=== PATIENT | female | born 1980 | race Caucasian/White ===

== ENCOUNTER 2019-05-05 21:24 | Emergency (ER) | payer OTHER, SELFPAY ==
--- NOTE | ~2019-05-05 | CT_ITS ---
EXAMINATION: CTA brain carotid DATE: 05/05/2019 22:45 INDICATION: Headache and dizziness. TECHNIQUE: Computed tomographic angiography (CTA) of the head was performed without and with 100 mL O mnipaque-350 intravenous contrast. CTA of the neck was performed with intravenous contrast. Automated exposure control and iterative reconstruction technique were employed. The dose-length product was 1 610.53 mGy-cm. Maximum intensity projection and volume rendered 3D-reconstructions were created by cortez diana technologist on a separate workstation. COMPARISON: None. FINDINGS: HEAD CTA: There is no intracranial hemorrhage, acute infarction, or abnormal intracranial mass lesion . The ventricles are normal in size. There is mild mucosal thickening in the paranasal sinuses. The o rbits are normal. The mastoid air cells are normal. The vertebral arteries are codominant. There is n o significant stenosis of basilar artery or the posterior cerebral arteries. There is no significant stenosis of the intracranial internal carotid arteries or anterior or middle cerebral arteries. Anter ior communicating artery is normal. The posterior communicating arteries are normal. There is no aneu rysm. NECK CTA: There are no pathologically enlarged lymph nodes. There is no significant stenosis of the v ertebral arteries. There is no visible plaque in the proximal internal carotid arteries. There is 0% stenosis of the proximal right internal carotid artery relative to normal distal artery lumen diamete r (NASCET criteria). There is 0% stenosis of the proximal left internal carotid artery relative to no rmal distal artery lumen diameter. There is mild cervical spondylosis. IMPRESSION: 1. Normal brain. No aneurysm or significant intracranial arterial stenosis. 2. Normal neck arteries. Reviewed, dictated and finalized at location A. IC RELATIONS ASSISTANT
[2019-05-05 21:27] VITALS: BP 160/112; PULSE 95; RESP 16; TEMP 36.5; O2SAT 100
--- NOTE | 2019-05-05 21:45 | ED.URI ---
HPI - URI/Sore Throat General Chief Complaint: Upper Respiratory Infection Stated Complaint: headache Time Seen by Provider: 05/05/19 21:44 Source: patient Mode of arrival: ambulatory Limitations: no limitations History of Present Illness HPI Narrative: The pt is a 38 y/o female who presents to the ED with c/o a RODRIGUEZ that began 2 hours ago. Her RODRIGUEZ began while sitting on the couch. She states that it started as a small RODRIGUEZ and has now worsened and moved to the entire lt side of her head. She describes it as a heavy pain behind her lt eye with and notes a tender spot on her lt forehead. The pt reports blurry vision in her lt eye, fever, rt ear otalgia, neck stiffness, and dizziness upon standing, but denies cough, rash, numbness, congestion, myalgia, vomiting, or ABD pain. She notes that her rt ear has been bothering her for about 2 months and that she has already sen Dr. Taylor about it twice. She does not have a PMHx of migraines but frequently gets shingles. She notes that she gets shingles about twice a year but she has never had these types of sx associated with it. 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 She does not smoke and is able to read her phone despite the RODRIGUEZ. elicited complaint: other (RODRIGUEZ) Onset (ago): hour(s) (2) Consistency: progressively worsening Associated symptoms: fever, ear pain (rt) and other (dizziness upon standing, blurry vision in lt eye, neck stiffness) Related Data Allergies Allergy/AdvReac Type Severity Reaction Status Date / Time morphine Allergy Unknown Verified 12/10/18 20:15 Review of Systems Review of Systems: Narrative: CONSTITUTIONAL: Reports fever and dizziness upon standing. EYES: Reports blurry vision in lt eye. ENT: Reports rt ear otalgia. Denies congestion. RESPIRATORY: Denies cough. GASTROINTESTINAL: Denies abdominal pain or vomiting. SKIN: Denies rash. MUSCULOSKELETAL: Reports neck stiffness. Denies myalgia. NEUROLOGIC: Reports headache. Denies numbness. All systems reviewed & are unremarkable except as noted in HPI and below [facility] Past Medical History Medical History (Updated 05/05/19 @ 23:39 by Michelle Ricketts MD) History of reproductive disorder uterine ablation Shingles TIA (transient ischemic attack) Surgical History Surgical History (Updated 05/05/19 @ 22:02 by Patience Alvarez) H/O tubal ligation History of orthopedic surgery rt shoulder Hx of section Hx of gastric bypass sleeve Hx of tonsillectomy Social History Social History (Updated 05/05/19 @ 22:02 by Patience Alvarez) Smoking status: Never smoker Exam Narrative: Exam Narrative: GENERAL: Well-appearing, well-nourished, and in no acute distress. HEAD: Normocephalic, atraumatic. EYES: 2+ PERRLA and EOMI no nystagmus. ENT: Nares clear, no rhinorrhea or epistaxis. Mucous membranes moist. NECK: Supple. CHEST: Clear to auscultation. No respiratory distress. HEART: Regular rate and rhythm. No murmur heard. Normal peripheral pulses. ABDOMEN: Soft, nontender, nondistended, normal active bowel sounds. EXTREMITIES: Normal range of motion. No edema. SKIN: Warm, dry, no rash. NEURO: No focal deficits. Alert and oriented X3. EOMs intact without nystagmus. No facial droop/asymmetry noted bilaterally. Grimace intact. Intact sensation in face. Hearing intact bilaterally. Shoulder shrug intact. Strength 5/5 bilateral upper extremities. Strength 5/5 bilateral lower extremities. Reflexes 2+ patellar. Ambulatory with a narrow base, steady gait. Course Course Emergency Course: Patient presented for evaluation of headache pain as well as tingling over her left forehead and eye. Patient does not have eye pain. No visual changes. Patient does report some dizziness that is only with movement and no dizziness currently. Patient is neurologically intact with a normal neurologic exam. IV access obtained and labs are drawn. Laboratory results show no leukocytosis
[2019-05-05] MEDS: SODIUM CHLORIDE 0.9% IV 1,000 ML 999 ML IV CONT (22:03)
[2019-05-05] MEDS: METOCLOPRAMIDE HCL INJ 10 MG/2 ML VIAL IV PUSH (22:04)
[2019-05-05 22:07] LABS: Basophils Percent Auto 0.4 % (0.2-1.2); Eosinophils Absolute Auto 0.2 K/mm3 (0-0.3); Hematocrit 41.4 % (37.0-47.0); Hemoglobin 13.3 g/dL (12.0-15.0); Immature Granulocyte Absolute 0.02 K/mm3 (0.00-0.031); Immature Granulocyte Percent A 0.3 % (0-0.5); Lymphocytes Absolute Auto 2.57 K/mm3 (0.9-3.2); Lymphocytes Percent Auto 36.6 % (18.3-44.2); Mean Corpuscular HGB Conc 32.1 g/dl (32-36); Mean Corpuscular Hemoglobin 26.5 pg (26-34); Mean Corpuscular Volume 82.6 fl (80-100); Mean Platelet Volume 9.8 fl (7.4-10.4); Monocytes Absolute Auto 0.5 K/mm3 (0.1-0.6); Monocytes Percent Auto 6.7 % (2.6-8.5); Neutrophils Absolute Auto 3.7 K/mm3 (1.3-6.7); Platelet Count Result 184 k/mm3 (150-375); Red Blood Count 5.01 M/mm3 (4.2-5.4); Red Cell Distribution Width 13.3 % (11.5-14.5)
[2019-05-05 22:17] LABS: INR 0.9; Prothrombin Time 11.5 Seconds (11.1-14.7)
[2019-05-05 22:18] LABS: Partial Thromboplastin Time 28.1 SECONDS (22.3-36.8)
[2019-05-05] MEDS: ACYCLOVIR SODIUM IVPB 800 MG in DEXTROSE 5% IN WATER 250 ML 266 MG IVPB (22:18)
[2019-05-05 22:19] LABS: Blood Urea Nitrogen 18 mg/dL (7-17); Calcium 8.7 mg/dL (8.4-10.2); Carbon Dioxide 25 mmol/L (22-30); Chloride 102 mmol/L (98-107); Estimated CRCL calculation 94 ml/min; Estimated Glomerular Filt Rate > 60; Glucose 99 mg/dL (65-105); Potassium 3.9 mmol/L (3.4-5.0); Sodium 136 mmol/L (137-145)
[2019-05-05 22:33] LABS: Erythrocyte Sedimentation Rate 12 mm/hr (0-20)
[2019-05-05 23:58] VITALS: BP 132/77; PULSE 88; RESP 18; O2SAT 99
--- NOTE | 2019-06-03 06:10 | PC.NURSE ---
LATE ENTRY This note is being entered to document information to the patient's record. The following information was omitted on [05/05/19], by [Norman Vivar]. 1L IV fluids infused at 2300. Antibiotic infused at 2314.
== END 2019-05-06 | disposition home or self-care (01) ==
PROVIDERS: Emergency Provider Emergency Medicine; PCP Emergency Medicine
DX: G43.009 Migraine without aura, not intractable, without status migrainosus (principal); Z86.73 Personal history of transient ischemic attack (TIA), and cerebral infarction without residual deficits; Z98.84 Bariatric surgery status
CPT/HCPCS: 36415; 70496; 70498; 80048; 85025; 85610; 85652; 85730; 96361; 96365; 96375; 99284; J0133; J1100; J1200; J2765; J7030; J7060; Q9967

== ENCOUNTER → 2019-09-26 10:27 | Outpatient (CLI) | payer OTHER, SELFPAY ==
--- NOTE | ~2019-09-26 | XR_ITS ---
EXAMINATION: XR foot LT min 3V DATE: 09/26/2019 11:02 INDICATION: Polyarthralgia. TECHNIQUE: 4 views of left foot were obtained. COMPARISON: Left foot radiographs 01/26/2019 FINDINGS: Bone alignment is normal. No acute fracture. There is an old healed fracture of first proxi mal phalanx with less than 1 mm step-off at the distal articular surface. Joint spaces are normal. Th ere is an enthesophyte at plantar aspect of calcaneal tuberosity. IMPRESSION: 1. No arthritis. Reviewed, dictated and finalized at location A. IMPRESSION: 1. No arthritis.
--- NOTE | ~2019-09-26 | XR_ITS ---
EXAMINATION: XR sacroiliac joints min 3V DATE: 09/26/2019 11:03 INDICATION: Polyarthralgia. TECHNIQUE: 3 views of the sacroiliac joints were obtained. COMPARISON: None. FINDINGS: Bone alignment is normal. No fracture. There is mild osteoarthritis of the hips. The sacroi liac joints are normal. IMPRESSION: 1. Normal sacroiliac joints. Reviewed, dictated and finalized at location A.
--- NOTE | ~2019-09-26 | XR_ITS ---
EXAMINATION: XR foot RT min 3V DATE: 09/26/2019 11:02 INDICATION: Polyarthralgia. TECHNIQUE: 4 views of right foot were obtained. COMPARISON: None. FINDINGS: Bone alignment is normal. No fracture. Joint spaces are well maintained. There is an enthes ophyte at plantar aspect of calcaneal tuberosity. IMPRESSION: 1. No arthritis. Reviewed, dictated and finalized at location A. IMPRESSION: 1. No arthritis.
--- NOTE | ~2019-09-26 | XR_ITS ---
XR hand RT min 3V, XR hand LT min 3V 09/26/2019 11:02 (accession [id number]), 09/26/2019 11:01 (accession [id number]) Indication: Polyarthralgias. Generalized joint pain. Procedure: 3 views of each hand Comparison: No prior studies for comparison. Findings: No fracture, subluxation or dislocation. No significant soft tissue abnormality. No foreign bodies. No erosive changes. No significant joint space narrowing. Impression: 1: No significant bone or joint abnormality. Reviewed, dictated and finalized at location A. Impression: 1: No significant bone or joint abnormality. Impression: 1: No significant bone or joint abnormality.
== END ==
DX: M19.90 Unspecified osteoarthritis, unspecified site (principal)
CPT/HCPCS: 72202; 73130; 73630

== ENCOUNTER 2021-08-02 12:54 | Emergency (ER) | payer OTHER, SELFPAY ==
[2021-08-02 12:58] VITALS: BP 142/91; PULSE 92; RESP 16; TEMP 36.6; O2SAT 100
--- NOTE | 2021-08-02 13:08 | ED.URI ---
HPI - URI/Sore Throat General Chief Complaint: Upper Respiratory Infection Stated Complaint: Sore throat Time Seen by Provider: 08/02/21 13:00 Source: patient and RN notes reviewed History of Present Illness HPI Narrative: Patient is a 41-year-old female presents the urgent care with complaints of a sore throat and left ear pain radiating to the left jaw. Patient states that she has a strong history of shingles and this feels like shingles nerve pain . Patient has lupus and a lot of autoimmune disorders and reports a history of shingles approximately 3 times per year. Patient states that the Valtrex does not tend to work however she is willing to try anything at this time . Patient states that she does have chronic intermittent fevers which she had a couple days ago. Patient has used lidocaine spray without much relief. No other acute complaints. No acute distress noted. Patient aware the plan of care. Some parts of this dictation were generated by voice recognition software and may contain typographical and/or grammatical inaccuracies. Related Data Home Medications Medication Instructions Recorded Confirmed pregabalin 75 mg PO BID 08/02/21 08/02/21 zolpidem 10 mg PO HS PRN 08/02/21 08/02/21 Allergies Allergy/AdvReac Type Severity Reaction Status Date / Time morphine Allergy Unknown Unknown Verified 08/02/21 13:16 Review of Systems Review of Systems: CONSTITUTIONAL: Denies fever, chills, or sweats. EYES: Denies visual changes, redness, or discharge. ENT: Reports of sore throat, left otalgia CARDIOVASCULAR: Denies chest pain, palpitations, or edema. RESPIRATORY: Denies cough or dyspnea. GASTROINTESTINAL: Denies abdominal pain, nausea, vomiting, or diarrhea. GENITOURINARY: Denies dysuria or hematuria. SKIN: Denies rash or itching. MUSCULOSKELETAL: Denies back pain, joint pain, or myalgia. NEUROLOGIC: Denies headache, numbness, or weakness. All other systems reviewed are negative, except as documented in HPI. [facility] Past Medical History Medical History (Updated 08/02/21 @ 13:33 by MAKEDA Ocampo) History of reproductive disorder uterine ablation Shingles TIA (transient ischemic attack) Surgical History Surgical History (Updated 05/05/19 @ 22:02 by Patience Alvarez) H/O tubal ligation History of orthopedic surgery rt shoulder Hx of section Hx of gastric bypass sleeve Hx of tonsillectomy Social History Social History (Updated 05/05/19 @ 22:02 by Patience Alvarez) Smoking status: Never smoker Comments At the time of my signature, I reviewed and agree with the nursing past medical, surgical, social, and family history. There is no relevant family history pertinent to the patient complaint. Exam Narrative: GENERAL: This is a well-nourished, well-developed patient, in no apparent distress. HEAD: normocephalic, atraumatic. EYES: PERRL. Sclera clear/white. Vision is grossly intact. EARS: External ears normal, auditory canals clear and without drainage, TMs normal without perforation. Hearing grossly intact. NOSE: External nose normal with no obvious nasal discharge, nares without redness, no rhinorrhea. THROAT: Mucous membranes moist. Moderate erythema noted to the left posterior oropharynx with 1 pinpoint vesicular lesion to the left NECK: Neck supple, non-tender without lymphadenopathy CARDIOVASCULAR: Regular rate and rhythm without murmurs, gallops, or rubs. RESPIRATORY: Clear to auscultation. Breath sounds equal bilaterally. No wheezes, rales, or rhonchi. SKIN: warm, intact with no suspicious lesions or rash, good texture and turgor. NEURO: awake, alert, and oriented to person, place and time. There were no obvious focal neurologic abnormalities. EXTREMITIES: No clubbing, cyanosis, or edema. Course Course Level of Care: Express Care Visit Vital Signs Vital signs: Vital Signs Temperature 98 F 08/02/21 12:58 Pulse Rate 92 08/02/21 12:58 Respiratory Rate
== END 2021-08-02 13:35 | disposition home or self-care (01) ==
PROVIDERS: Emergency Provider Nurse Practitioner Family; PCP Emergency Medicine
DX: J02.9 Acute pharyngitis, unspecified (principal); Z86.73 Personal history of transient ischemic attack (TIA), and cerebral infarction without residual deficits; Z98.84 Bariatric surgery status
CPT/HCPCS: 87081; 87880; 99213; G0463

== ENCOUNTER 2021-12-22 09:15 | Outpatient (CLI) | payer OTHER, SELFPAY ==
[2021-12-22 09:44] LABS: Basophils Percent Auto 0.5 % (0.2-1.2); Eosinophils Absolute Auto 0.3 K/mm3 (0-0.3); Eosinophils Percent Auto 4.7 % (0-4.4); Hemoglobin 13.1 g/dL (12.0-15.0); Immature Granulocyte Absolute 0.02 K/mm3 (0.00-0.031); Immature Granulocyte Percent A 0.4 % (0-0.5); Lymphocytes Absolute Auto 1.57 K/mm3 (0.9-3.2); Lymphocytes Percent Auto 28.4 % (18.3-44.2); Mean Corpuscular HGB Conc 32.8 g/dl (32-36); Mean Corpuscular Hemoglobin 26.7 pg (26-34); Mean Corpuscular Volume 81.6 fl (80-100); Mean Platelet Volume 9.4 fl (7.4-10.4); Monocytes Absolute Auto 0.3 K/mm3 (0.1-0.6); Monocytes Percent Auto 6.1 % (2.6-8.5); Neutrophils Absolute Auto 3.3 K/mm3 (1.3-6.7); Neutrophils Percent Auto 59.9 % (45.5-73.1); Platelet Count Result 209 k/mm3 (150-375); Red Cell Distribution Width 13.3 % (11.5-14.5); White Blood Count 5.5 K/mm3 (4.5-10.0)
== END 2021-12-22 09:16 | disposition home or self-care (01) ==
LOC: ANHSURGERY 09:21
PROVIDERS: PCP Emergency Medicine; Visit Provider Obstetrics & Gynecology
DX: Z87.898 Personal history of other specified conditions (principal); Z01.818 Encounter for other preprocedural examination
CPT/HCPCS: 36415; 85025; 86850; 86900; 86901

== ENCOUNTER 2021-12-23 02:20 | Day surgery (SDC) | payer OTHER, SELFPAY ==
[2021-12-21 09:39] VITALS: BMI 33.7
--- NOTE | 2021-12-21 09:52 | PC.NURSE ---
Report to the Outpatient Waiting Room, entrance under the green pavilion located off [facility], at time ___10:00AM____ on date __1-49-54 . OR Time: __12:00PM . - You and your visitor will be asked to self-screen and do not enter if you have any COVID symptoms. - Only one visitor and NO children visitors are allowed at this time. - The patient visitor is requested to leave or wait in car when not with patient due to restrictions. - A mask is required within the hospital. Patients may have clear liquids (water, carbonated beverages, clear teas, apple juice) until 3 hours prior to surgery with a maximum of 20 ounces. - No food from midnight until time of surgery - NO CLEAR LIQUIDS AFTER 09:00AM TUESDAY MORNING Take the following medications with a SIP of water the morning of surgery: N/A Medications to discontinue per physician N/A Date to take last dose____N/A Please no make-up, nail emirati, hairspray, perfume, deodorant, or body powder the day of surgery. No jewelry (including any body piercings) or valuables the day of surgery, leave them at home. Please take a shower or bath the night before, or the morning of, surgery with an antibacterial soap. Wear comfortable, loose fitting clothing. - Jewelry must be removed prior to entering the operating room. Rings and piercings that are not removed may be cut off. - The hospital will not accept responsibility for valuables. - Please leave all valuables, including medications, at home the day of surgery. If you are going home after surgery, a licensed special events driver must drive you home. - NO public transportation without another adult. - We recommend that an adult stay with you for 24 hours following discharge. - We also recommend that you do not drive, make important decision, drink alcoholic beverages, or take any drugs that were not prescribed by your health care provider for at least 24 hours after your discharge time. Follow any additional instructions given to you from your surgeon. If you or anyone in your household have experienced Covid symptoms in the past week, please notify your surgeon or the nurse liaison at the phone number below for possible testing. Telephone instructions given to ____PATIENT and asked if any additional questions and then verbalized understanding. Patient advised to call surgeon office or pre surgery nurse liaison [phone] if any additional questions.
--- NOTE | 2021-12-21 17:58 | PM.IMHP ---
H&P: HPI History of Present Illness Date/Time: 12/21/21 17:58 Chief Complaint: Uterine prolapse/pelvic pain/bleeding with a failed ablation Narrative: This 41 female status post ablation who continues to have bleeding has prolapse and pain says she is admitted for robotic total vaginal hysterectomy bilateral salpingectomy. Risks and benefits reviewed including but not exclusive of , aspiration bleeding transfusion, perforation injury to bowel, bladder, ureters, or other internal organs with need for open laparotomy. She received the ACOG handout entitled hysterectomy as well as Darlene handout. She had all questions answered and asked to proceed PMFSH Past Medical History Medical History History of reproductive disorder uterine ablation Shingles TIA (transient ischemic attack) Surgical History Surgical History H/O tubal ligation History of orthopedic surgery rt shoulder Hx of section Hx of gastric bypass sleeve Hx of tonsillectomy Social History Social History Smoking status: Never smoker Second hand tobacco smoke exposure: Yes (PARENTS SMOKED) Alcohol intake: never Substance use: never Substance use type: does not use Spiritual care concerns: No Meds Home Medications and Allergies Home Medications Medication Instructions Recorded Confirmed Type zolpidem 10 mg tablet 10 mg PO HS PRN sleeplessness 08/02/21 12/21/21 History Allergies Allergy/AdvReac Type Severity Reaction Status Date / Time latex Allergy Severe Rash Verified 12/21/21 09:37 morphine Allergy Severe Hives Verified 12/21/21 09:37 Exam Const: General: cooperative, healthy appearing and comfortable Nutritional Appearance: average body habitus Orientation/consciousness: oriented to person, oriented to place and oriented to time Chest: Chest palpation & inspection: normal inspection of the chest Resp: Effort & Inspection: normal respiratory effort Cardio: Rate: regular rate Rhythm: regular rhythm Heart sounds: S1 normal heart sound present and S2 normal heart sound present GI: Inspection: normal to inspection : External Female Exam: normal external appearance Speculum Exam - Vagina: normal appearance of the vagina Speculum Exam - Cervix: normal appearance of the cervix Bimanual exam- vagina & uterus: enlarged and Uterus displaced (Second-degree prolapse noted) Assessment and Plan Assessment and plan (1) Pelvic pain: Code(s): R10.2 - Pelvic and perineal pain Status: Acute (2) Vaginal bleeding: Code(s): N93.9 - Abnormal uterine and vaginal bleeding, unspecified Status: Acute (3) Uterine prolapse: Code(s): N81.4 - Uterovaginal prolapse, unspecified Status: Acute Plan Robotic total vaginal hysterectomy and bilateral salpingectomy
--- NOTE | 2021-12-22 12:13 | WPDANESEPPF ---
Anes - Initial Pre Proc Eval Procedure: Operation Date: 12/23/21 12:00 Proposed Procedures p Robotic Assisted Total Vaginal Hysterectomy with Bilateral Salpingectomy - Gary Dsouza MD Date/Time: 12/22/21 12:13 Surgeon: Gary Dsouza MD Pre Op Diagnosis: uterine prolapse, pelvic pain, excessive bleeding Patient Data Age: 41 Gender: F Height: 1.68 m Weight: 95 kg Allergies Allergy/AdvReac Type Severity Reaction Status Date / Time latex Allergy Severe Rash Verified 12/23/21 10:26 morphine Allergy Severe Hives Verified 12/23/21 10:26 Home Medications Medication Instructions Recorded Confirmed Type zolpidem 10 mg tablet 10 mg PO HS PRN sleeplessness 08/02/21 12/23/21 History Patient hx anesthesia problems: none Family hx anesthesia problems: none Results Review: All pre-operative results and documents have been reviewed as part of the pre-operative evaluation. [facility] Past Medical History Medical History (Updated 12/22/21 @ 12:14 by Ab Moy MD) History of reproductive disorder uterine ablation Lupus (systemic lupus erythematosus) Shingles TIA (transient ischemic attack) Surgical History Surgical History H/O tubal ligation History of orthopedic surgery rt shoulder Hx of section Hx of gastric bypass sleeve Hx of tonsillectomy Social History Social History Smoking status: Never smoker Second hand tobacco smoke exposure: Yes (PARENTS SMOKED) Alcohol intake: never Substance use: never Substance use type: does not use Living arrangements: with family Spiritual care concerns: No Anes - Eval Final PreProcedure Day of Procedure 12/22/21 12:13 Patient weight: obese Heart: regular rate and rhythm Lungs: clear to auscultation and normal air movement Airway: Mallampati scale class II Neurological: alert and oriented Last oral intake: >/= 8 hours ASA classification: III Emergent: no Anesthetic plan: proceed Anesthesia type and monitoring: general ETT Results Review: All pre-operative results and documents have been reviewed as part of the pre-operative evaluation. Informed Consent: The patient's anesthetic plan and its attendant risks and benefits were discussed with the patient/family/POA. Questions were solicited and answers provided to the satisfaction of the patient/family/POA.
[2021-12-23] VITALS (11 sets, daily range): BP systolic 116–150; BP diastolic 63–86; PULSE 52–73; RESP 16–20; TEMP 36.1–36.6; O2SAT 95–100; BMI 32.4
--- NOTE | 2021-12-23 07:42 | WPDHPUPDATE1 ---
History and Physical Update Update Date/Time: 12/23/21 07:42 History and Physical has been reviewed, including an updated exam of the patient. There are NO changes in the patient's condition. Risks, benefits, and alternatives have been discussed and questions answered. Patient agrees to proceed with procedure.
[2021-12-23] MEDS: ACETAMINOPHEN 500 MG TABLET 1000 MG PO (10:38)
[2021-12-23] MEDS: LACTATED RINGERS 1,000 ML 30 ML IV CONT ×2 (11:03→14:45)
[2021-12-23] MEDS: SCOPOLAMINE 1.5 MG PATCH TRANSDERM (11:42)
[2021-12-23] MEDS: ceFAZolin 2 GM/D5W 50 ML 2 GM/50 ML BAG IVPB (12:25)
--- NOTE | 2021-12-23 13:42 | P.OP_ITS ---
Procedure Note - Detailed Date of Procedure 12/23/21 Pre-op Diagnosis uterine prolapse, pelvic pain, excessive bleeding Post-op Diagnosis Same Procedure Performed Robotic total vaginal hysterectomy and bilateral salpingectomy Surgeon Gary Dsouza MD Anesthesia General Indications This is a 41-year-old female with prolapse and bleeding refractory to medical therapy Findings Enlarged uterus. Tubes status post tubal ligation. Normal-appearing ovaries bilaterally. Description of Procedure The patient is prepped draped in the normal sterile fashion placed in the dorsal lithotomy position. Under excellent general trach anesthesia weighted speculum placed in posterior fornix of vagina. Anterior lip of the cervix grasped with single-tooth tenaculum the uterus sounded to 8cm. Serial dilatation with fr agmented dilators performed. This was followed by passage of the 8. PARRIS and the 3. Cold cup. Next the 16 Trin[place] catheter was placed and drained of clear urine. The weighted speculum and single-tooth removed. The gloves were changed. A supraumbilical incision made the Veress needle passed in the abdomen. Abdomen filled with CO2 gas [id number]. The 8mm trocar advanced in the abdomen. Downside visualized no injury seen. Patient placed in Trendelenburg and right left lateral quadrant incisions made. The 8mm trocars advanced under direct visualization assuring no injury. A right upper quadrant incision made the 8mm trocar advanced under direct visualization assuring no injury. The robot was docked. Attention was turned to the console. The left round ligament was grasped, burned, cut. Anteriorly the bladder was dissected away sharply through the peritoneum and reflected caudally away from the cervix and uterus to the opposite round ligament which was clamped, burned, cut. Next the uterine ovarian ligament on the left was clamped, burned, cut and this was brought to the level of the previously cut round ligament. The right fallopian tube was then sharply dissected away from the ovary and left attached to the uterus. The left fallopian tube was also sharply dissected and left attached at soreness origin a guzman of the uterus. The right utero-ovarian ligament was skeletonized conserving the right ovary. This was clamped, burned, cut and brought to level of previously cut round ligament. Next the cardinal broad ligaments on the left were serially skeletonized hugging the cervix and uterus clamping burning cutting until the uterine vessels could be seen on the left. These were individually clamped, burned, cut. There were large and tortuous. Uterine vessels on the right were serially skeletonized after clamping burning and cutting the cardinal and broad ligaments on the left. These were clipped these vessels were clamped, burned, cut. Excellent blanching of the uterus was noted. A colpotomy incision remained and the uterus tubes and cervix removed through the vagina. The vagina was then closed with continuous running 0V lock from lateral edge to lateral edge back to the midline. Irrigation undertaken to clear and blood loss was estimated 25cc. The robot was undocked. The gas removed from the abdomen. The trocars removed and the incisions closed with 4 Monocryl glue. The patient was awakened and went to recovery in satisfactory condition. All sponge, needle, instrument counts were correct. There were no immediate complications Estimated Blood Loss 25 Drains No Packing No Pathology Yes Complications No immediate complications Condition Stable Disposition PACU
[2021-12-23] MEDS: fentaNYL CITRATE INJ (*CRX) 100 MCG/2 ML VIAL 25 MCG IV PUSH ×8 (14:39→15:20)
--- NOTE | 2021-12-23 15:37 | PC.NURSE ---
This patient, Catherine Purvis, was received from PACU on 12/23/21 at 1537. Patient/family oriented to unit policies and routines
[2021-12-23] MEDS: DEXTROSE 5%/LACTATED RINGERS 1,000 ML 125 ML IV CONT (16:19)
[2021-12-23] MEDS: ONDANSETRON INJ 4 MG/2 ML VIAL IV PUSH (16:21)
[2021-12-23] MEDS: KETOROLAC 30 MG/ML VIAL (*BKC) IV PUSH ×2 (16:22→21:07)
[2021-12-23] MEDS: ACETAMINOPHEN 325 MG TABLET 650 MG PO (18:33)
[2021-12-23] MEDS: ZOLPIDEM TARTRATE (*CRX) 5 MG TABLET 10 MG PO (21:07)
[2021-12-24] VITALS: BP 114/64; PULSE 93; RESP 16; TEMP 36.5; O2SAT 97
[2021-12-24 05:04] VITALS: BP 122/72; PULSE 89; RESP 18; TEMP 37; O2SAT 98
[2021-12-24 05:53] LABS: Basophils Percent Auto 0.4 % (0.2-1.2); Eosinophils Percent Auto 0.2 % (0-4.4); Hematocrit 39.4 % (37.0-47.0); Hemoglobin 12.8 g/dL (12.0-15.0); Immature Granulocyte Absolute 0.03 K/mm3 (0.00-0.031); Immature Granulocyte Percent A 0.4 % (0-0.5); Lymphocytes Absolute Auto 1.44 K/mm3 (0.9-3.2); Lymphocytes Percent Auto 17.6 % (18.3-44.2); Mean Corpuscular HGB Conc 32.5 g/dl (32-36); Mean Corpuscular Hemoglobin 26.6 pg (26-34); Mean Corpuscular Volume 81.7 fl (80-100); Mean Platelet Volume 9.5 fl (7.4-10.4); Monocytes Absolute Auto 0.4 K/mm3 (0.1-0.6); Monocytes Percent Auto 5.3 % (2.6-8.5); Neutrophils Absolute Auto 6.2 K/mm3 (1.3-6.7); Neutrophils Percent Auto 76.1 % (45.5-73.1); Platelet Count Result 223 k/mm3 (150-375); Red Blood Count 4.82 M/mm3 (4.2-5.4); Red Cell Distribution Width 13.2 % (11.5-14.5); White Blood Count 8.2 K/mm3 (4.5-10.0)
--- NOTE | 2021-12-24 06:43 | PM.DS ---
DS: Admitting Diagnosis Discharge Date Admitting Diagnosis Vaginal bleeding/uterine prolapse/enlarged uterus DS: Discharge Diagnosis Discharge Diagnosis (1) Uterine prolapse: Code(s): N81.4 - Uterovaginal prolapse, unspecified Status: Acute (2) Vaginal bleeding: Code(s): N93.9 - Abnormal uterine and vaginal bleeding, unspecified Status: Acute (3) Pelvic pain: Code(s): R10.2 - Pelvic and perineal pain Status: Acute DS: Summary Hospital Course Reason for hospitalization: Patient was admitted for robotic total vaginal hysterectomy and bilateral salpingectomy Hospital Course: Patient underwent unremarkable robotic hysterectomy bilateral salpingectomy. Please see the operative report for full details. Hospital course was unremarkable. She remained afebrile. She was up, walking, voiding without difficulty, eating a regular diet, and generally without complaints. Time Spent with Patient Time attestation: Total time spent providing and/or coordinating discharge services: DS: Data Data Completed and Pending Pending studies at discharge: Pending at discharge 12/23/21 13:30 Surgical [PTH] Routine Labs on day of discharge: Labs from last 24 hours 12/24/21 05:12 WBC 8.2 RBC 4.82 Hgb 12.8 Hct 39.4 MCV 81.7 MCH 26.6 MCHC 32.5 RDW 13.2 Plt Count 223 MPV 9.5 Immature Gran % (Auto) 0.4 Neut % (Auto) 76.1 H Lymph % (Auto) 17.6 L [place] % (Auto) 5.3 Eos % (Auto) 0.2 Baso % (Auto) 0.4 Lymph # (Auto) 1.44 [place] # (Auto) 0.4 Eos # (Auto) 0.0 Baso # (Auto) 0.0 Abs Immat Gran (auto) 0.03 Absolute Neuts (auto) 6.2 Absolute Nucleated RBC 0.0 Nucleated RBC % 0.0 Discharge Plan Discharge Patient Disposition: Home, Self-Care Discharge Instructions: Remove the Scopolamine patch that was placed behind your ear in 72 hours or less. Wash your hands after touching. Stand Alone Forms: General Discharge Instructions Follow-up/Referrals: Gary Barajas MD [Physician] - Discharge Medications: New ketorolac 10 mg tablet 10 mg PO Q6H PRN (Reason: pain) 5 Days Qty: 20 0RF No Action zolpidem 10 mg tablet 10 mg PO HS PRN (Reason: sleeplessness)
--- NOTE | 2021-12-24 06:45 | PM.GYNPNOP ---
UTILIZATION MANAGEMENT MANAGER - A/P Postoperative Procedures: Procedures Operation Date: 12/23/21 12:00 Actual Procedure Side Surgeon p Robotic Assisted Total Vaginal Hysterectomy with Bilateral Salpingectomy Bilateral Gary Dsouza MD Postoperative day: 1 Postoperative status: doing well Postoperative plan: routine post-op care, ambulate and discharge Time Spent With Patient Time: Total time spent is greater than 50% in coordination of care (as documented) at patient's floor/unit and/or counseling patient: Time with patient: less than 15 minutes UTILIZATION MANAGEMENT MANAGER- PN:Subj Post-Op Subjective Date/time seen: 12/24/21 06:45 Subjective: patient reports feeling better, patient has no complaints, patient desires discharge, pain is well controlled and patient is tolerating oral intake UTILIZATION MANAGEMENT MANAGER - PN: Obj Data Vital Signs Vital Signs: Vital Signs - 24 hr 12/23/21 09:50 12/23/21 13:55 12/23/21 14:10 Temperature 96.9 F L 97.3 F L Pulse Rate 71 52 L 61 Respiratory Rate 16 20 20 Blood Pressure 133/83 130/63 116/72 Pulse Oximetry 100 100 100 Oxygen Delivery Room Air Simple Face Mask Simple Face Mask Oxygen Flow Rate 8 8 12/23/21 14:25 12/23/21 14:40 12/23/21 14:55 Temperature Pulse Rate 57 L 52 L 55 L Respiratory Rate 20 18 20 Blood Pressure 116/72 147/73 H 138/67 Pulse Oximetry 100 100 100 Oxygen Delivery Simple Face Mask Simple Face Mask Simple Face Mask Oxygen Flow Rate 8 8 8 12/23/21 14:56 12/23/21 15:10 12/23/21 15:25 Temperature Pulse Rate 66 69 Respiratory Rate 18 18 Blood Pressure 126/70 135/72 Pulse Oximetry 98 97 99 Oxygen Delivery Room Air Room Air Room Air Oxygen Flow Rate 12/23/21 18:40 12/23/21 18:40 12/23/21 15:45 Temperature 97.8 F 97.0 F L Pulse Rate 73 64 Respiratory Rate 18 16 Blood Pressure 140/83 150/86 H Pulse Oximetry 95 Oxygen Delivery Room Air Oxygen Flow Rate 12/24/21 00:00 12/24/21 00:00 12/24/21 05:04 Temperature 97.7 F 98.6 F Pulse Rate 93 89 Respiratory Rate 16 18 Blood Pressure 114/64 122/72 Pulse Oximetry 97 98 Oxygen Delivery Room Air Oxygen Flow Rate 12/24/21 05:04 Temperature Pulse Rate Respiratory Rate Blood Pressure Pulse Oximetry Oxygen Delivery Room Air Oxygen Flow Rate Intake/Output Intake/Output: Intake & Output 12/21/21 12/22/21 12/23/21 12/24/21 23:59 23:59 23:59 23:59 Intake Total 850 1000 Output Total 820 Balance 30 1000 Meds/Results Medications: Active Medications Generic Name Dose Route Start Last Admin Trade Name Freq PRN Reason Stop Dose Admin Acetaminophen 650 mg 12/23/21 18:29 12/24/21 00:00 Acetaminophen 325 Mg Tablet PO 650 mg Q6H PRN Administration Mild Pain (1-3) or Fever Docusate Sodium 100 mg 12/23/21 17:00 12/23/21 18:00 Docusate Sodium 100 Mg Capsule PO Not Given BID ANDRE Enoxaparin Sodium 40 mg 12/24/21 09:00 Enoxaparin 40 Mg/0.4 Ml Syringe SUB-Q DAILY [facility] Ketorolac Tromethamine 30 mg 12/23/21 15:31 12/23/21 21:07 Ketorolac 30 Mg/Ml Vial (*Bkc) IV PUSH 12/28/21 15:30 30 mg Q6H PRN Administration Pain Rated 4-6 Naloxone HCl 0.1 mg 12/23/21 15:31 Naloxone Hcl 0.4 Mg/Ml Vial IV PUSH Q2M PRN Respiratory rate less than 10 Ondansetron HCl 4 mg 12/23/21 15:31 12/23/21 16:21 Ondansetron Inj 4 Mg/2 Ml Vial IV PUSH 4 mg Q6H PRN Administration Nausea And Vomiting Simethicone 80 mg 12/23/21 15:31 Simethicone 80 Mg Tab.Chew PO Q2H PRN Gas Zolpidem Tartrate 10 mg 12/23/21 18:44 12/23/21 21:07 Zolpidem Tartrate (*Crx) 5 Mg Tablet PO 10 mg HS PRN Administration Insomnia Labs CBC & Chem 7: 12/24/21 05:12 Labs: Laboratory Results - last 24 hr 12/24/21 05:12 WBC 8.2 RBC 4.82 Hgb 12.8 Hct 39.4 MCV 81.7 MCH 26.6 MCHC 32.5 RDW 13.2 Plt Count 223 MPV 9.5 Immature Gran % (Auto) 0.4 Neut % (Auto) 76.1 H Lymph % (Auto) 17.6 L [place] %
--- NOTE | 2021-12-24 08:00 | PC.NURSE ---
PT introductions made and plan of care discussed per post op surgery, pain management, daily care activities and follow up appointments. PT and significant other both recipients of such instructions and no barriers to learning identified at this time. PT to received instructions via one to one discussion and demonstrations this shift. PT verbalized understanding of such care.
[2021-12-24 08:15] VITALS: BP 119/61; PULSE 84; RESP 20; TEMP 36.4; O2SAT 100
[2021-12-24 08:36] VITALS: BP 119/61; PULSE 84; RESP 20; TEMP 36.4; O2SAT 100
[2021-12-24] MEDS: KETOROLAC 30 MG/ML VIAL (*BKC) IV PUSH (08:38)
[2021-12-24] MEDS: DOCUSATE SODIUM 100 MG CAPSULE PO (08:39)
[2021-12-24] MEDS: SIMETHICONE 80 MG TAB.CHEW PO (08:39)
[2021-12-24] MEDS: ACETAMINOPHEN 325 MG TABLET 650 MG PO ×2 (08:39)
[2021-12-24] MEDS: ENOXAPARIN 40 MG/0.4 ML SYRINGE SUB-Q (08:40)
--- NOTE | 2021-12-24 11:45 | PC.NURSE ---
PT received discharge instructions per protocol and verbalized understanding
--- NOTE | 2021-12-24 12:05 | PC.NURSE ---
PT discharged to home ambulatory accompanied by spouse and taken to waiting car. Follow up appts confirmed
--- NOTE | 2021-12-24 12:22 | P.PNAN_ITS ---
Anes - Prog Note Post-Op Date/Time: 12/24/21 12:22 Vital Signs: Last Vital Signs Temp 36.4 C L 12/24/21 08:36 Pulse 84 12/24/21 08:36 Resp 20 12/24/21 08:36 BP 119/61 12/24/21 08:36 Pulse Ox 100 12/24/21 08:36 O2 Del Method Room Air 12/24/21 08:36 O2 Flow Rate 8 12/23/21 14:55 Pain Score (VAS): 0 I/O: Intake & Output 12/23/21 12/24/21 12/24/21 23:59 07:59 15:59 Intake Total 200 1000 480 Output Total 700 Balance -500 1000 480 Laboratory Tests 12/24/21 05:12 12/24/21 05:12 WBC 8.2 RBC 4.82 Hgb 12.8 Hct 39.4 MCV 81.7 MCH 26.6 MCHC 32.5 RDW 13.2 Plt Count 223 MPV 9.5 Immature Gran % (Auto) 0.4 Neut % (Auto) 76.1 H Lymph % (Auto) 17.6 L [place] % (Auto) 5.3 Eos % (Auto) 0.2 Baso % (Auto) 0.4 Lymph # (Auto) 1.44 [place] # (Auto) 0.4 Eos # (Auto) 0.0 Baso # (Auto) 0.0 Abs Immat Gran (auto) 0.03 Absolute Neuts (auto) 6.2 Absolute Nucleated RBC 0.0 Nucleated RBC % 0.0 Patient Feedback: Patient satisfied with anesthetic care.
== END 2021-12-24 12:05 | disposition home or self-care (01) ==
LOC: ANHSURGERY 11:40 → ANHOB2 15:34
PROVIDERS: PCP Emergency Medicine; Visit Provider Obstetrics & Gynecology
PROC: (CPT 58552; principal; 2021-12-23 12:00)
DX: N93.9 Abnormal uterine and vaginal bleeding, unspecified (principal); N81.4 Uterovaginal prolapse, unspecified; R10.2 Pelvic and perineal pain; Z86.73 Personal history of transient ischemic attack (TIA), and cerebral infarction without residual deficits; N80.2 Endometriosis of fallopian tube; N80.0 Endometriosis of uterus; M32.9 Systemic lupus erythematosus, unspecified; E66.9 Obesity, unspecified; Z68.32 Body mass index [BMI] 32.0-32.9, adult
CPT/HCPCS: 58552; S2900; 36415; 85025; 86850; 86900; 86901; 88307; 99199; A9270; J0690; J1100; J1650; J1885; J2250; J2405; J2704; J2710; J3010; J7030; J7120; J7121

== ENCOUNTER 2022-08-27 14:06 | Emergency (ER) | payer OTHER, SELFPAY ==
[2022-08-27 14:13] VITALS: BP 131/94; PULSE 95; RESP 18; TEMP 35.9; O2SAT 97
[2022-08-27 14:17] VITALS: BP 131/94; PULSE 95; RESP 18; TEMP 35.9; O2SAT 97
--- NOTE | 2022-08-27 14:24 | ED.FEMALEGU ---
HPI - Female Genitourinary General Chief complaint: Urogenital-Female Stated complaint: poss uti Time Seen by Provider: 08/27/22 14:30 Source: patient and RN notes reviewed Mode of arrival: ambulatory Limitations: no limitations History of Present Illness HPI Narrative: 42-year-old female presents with concern for hematuria, dysuria, urgency, frequency. Reports symptoms started today. Reports she some back pain that started a couple weeks ago but she does have a herniated disc. She denies fever, aches, chills, abdominal pain, nausea or vomiting. MD elicited complaint: UTI Related Data Home Medications Medication Instructions Recorded Confirmed zolpidem 10 mg tablet 10 mg PO HS PRN sleeplessness 08/02/21 08/27/22 Allergies Allergy/AdvReac Type Severity Reaction Status Date / Time latex Allergy Severe Rash Verified 12/23/21 10:26 morphine Allergy Severe Hives Verified 12/23/21 10:26 STEROIDS Allergy Unknown Uncoded 08/27/22 14:16 Review of Systems Review of Systems: CONSTITUTIONAL: Denies malaise, chills, sweats, or fever. CARDIOVASCULAR: Denies chest pain, palpitations, or edema. RESPIRATORY: Denies cough or dyspnea. GASTROINTESTINAL: Denies abdominal pain, nausea, vomiting, diarrhea GENITOURINARY: Reports dysuria, frequency, urgency, suprapubic pressure, hematuria. SKIN: Denies rash or itching. MUSCULOSKELETAL: Reports back pain. Denies myalgia. All systems reviewed & are unremarkable except as noted in HPI and below PMFSH Past Medical History Medical History (Updated 08/27/22 @ 14:34 by Michelle Garrido NP) History of reproductive disorder uterine ablation Lupus (systemic lupus erythematosus) Shingles TIA (transient ischemic attack) Surgical History Surgical History H/O tubal ligation History of orthopedic surgery rt shoulder Hx of section Hx of gastric bypass sleeve Hx of tonsillectomy Social History Social History Smoking status: Never smoker Second hand tobacco smoke exposure: Yes (PARENTS SMOKED) Alcohol intake: never Substance use: never Substance use type: does not use Living arrangements: with family Spiritual care concerns: No Comments At time of signature, agree with nursing past medical, surgical, social and family history. There is no relevant family history pertinent to the presenting complaint Exam Narrative: GENERAL: Well-appearing, well-nourished, and in no acute distress. HEAD: Normocephalic. EYES: PERRLA, conjunctivae clear. NECK: Supple. No lymphadenopathy CHEST: Clear to auscultation. No respiratory distress. HEART: Regular rate and rhythm. ABDOMEN: Soft, nontender upon palpation, nondistended, normal active bowel sounds, no palpable or pulsatile masses, no guarding. No CVA tenderness SKIN: Warm, dry, no rash. NEURO: Alert and oriented x3. PSYCH: Normal mood and affect Course Course Emergency Course: Patient is aware of diagnosis, understands and agrees to treatment plan. Anticipatory guidance given. Patient agrees to follow-up as directed and is aware of reasons to seek care at the emergency department. Portions of this record may have been created with voice recognition software Level of Care: Express Care Visit Vital Signs Vital signs: Vital Signs Temperature 96.7 F L 08/27/22 14:13 Pulse Rate 95 08/27/22 14:13 Respiratory Rate 18 08/27/22 14:13 Blood Pressure 131/94 H 08/27/22 14:13 Pulse Oximetry 97 08/27/22 14:13 Oxygen Delivery Room Air 08/27/22 14:13 Temperature 96.7 F L 08/27/22 14:17 Pulse Rate 95 08/27/22 14:17 Respiratory Rate 18 08/27/22 14:17 Blood Pressure 131/94 H 08/27/22 14:17 Pulse Oximetry 97 08/27/22 14:17 Oxygen Delivery Room Air 08/27/22 14:17 Reviewed. MDM - Female Genitourinary MDM Narrative Medical decision making narrative: Linda
== END 2022-08-27 14:39 | disposition home or self-care (01) ==
PROVIDERS: Emergency Provider Nurse Practitioner; PCP Emergency Medicine
DX: N39.0 Urinary tract infection, site not specified (principal); M32.9 Systemic lupus erythematosus, unspecified; Z86.73 Personal history of transient ischemic attack (TIA), and cerebral infarction without residual deficits
CPT/HCPCS: 81003; 87086; 99213; G0463

== ENCOUNTER 2023-06-16 09:46 | Outpatient (CLI) | payer OTHER, SELFPAY ==
--- NOTE | ~2023-06-16 | XR_ITS ---
Clinical Indication: Preoperative clearance PA and lateral views of the chest: Comparison: None Findings: The lungs are clear, without evidence of focal consolidation or pleural effusion. Cardiome diastinal silhouette is within normal limits. Bones and soft tissues are unremarkable. Impression: Normal chest. Reviewed, dictated and finalized at location . EL LEVELER Impression: Normal chest.
--- NOTE | 2023-06-16 10:19 | ECG_ITS ---
Measurements Intervals [place] Rate: 75 P: 52 NC: 158 QRS: 0 QRSD: 98 T: 29 QT: 380 QTc: 426 Interpretive Statements SINUS RHYTHM POSSIBLE LEFT ATRIAL ENLARGEMENT [-0.1mV P WAVE IN V1/V2] INCOMPLETE RIGHT BUNDLE BRANCH BLOCK NO PREVIOUS ECG AVAILABLE FOR COMPARISON Electronically Signed On 06-16-2023 12:42:18 PULMONARY FUNCTION TECHNOLOGIST by Melissa Chavis M.D.
[2023-06-16 10:53] LABS: Basophils Percent Auto 0.7 % (0.2-1.2); Eosinophils Absolute Auto 0.3 K/mm3 (0-0.3); Eosinophils Percent Auto 4.6 % (0-4.4); Hematocrit 40.6 % (37.0-47.0); Immature Granulocyte Absolute 0.04 K/mm3 (0.00-0.031); Immature Granulocyte Percent A 0.7 % (0-0.5); Lymphocytes Absolute Auto 2.13 K/mm3 (0.9-3.2); Mean Corpuscular Hemoglobin 26.4 pg (26-34); Mean Corpuscular Volume 82.4 fl (80-100); Mean Platelet Volume 9.2 fl (7.4-10.4); Monocytes Absolute Auto 0.3 K/mm3 (0.1-0.6); Monocytes Percent Auto 4.9 % (2.6-8.5); Neutrophils Absolute Auto 3.3 K/mm3 (1.3-6.7); Neutrophils Percent Auto 54.1 % (45.5-73.1); Platelet Count Result 215 k/mm3 (150-375); Red Blood Count 4.93 M/mm3 (4.2-5.4); Red Cell Distribution Width 13.6 % (11.5-14.5); White Blood Count 6.1 K/mm3 (4.5-10.0)
[2023-06-16 10:56] LABS: Appearance Urine Clear (Clear); Bilirubin Urine Negative (Negative); Blood Urine Negative (Negative); Color Urine Yellow (Yellow); Glucose Urine UA Negative (Negative); Ketones Urine Negative (Negative); Leukocyte Esterase Ur Negative LEU/UL (Negative); Nitrate Urine Negative (Negative); Protein Urine Negative (Negative); Specific Grav Ur 1.013 (1.001-1.035); Urobilinogen Urine 0.2 mg/dL (<2.0)
[2023-06-16 11:06] LABS: Alanine Aminotransferase 24 U/L (6-35); Albumin Level 4.3 g/dL (3.5-5.1); Alkaline Phosphatase 93 U/L (38-126); Anion Gap 4 mmol/L (8-16); Aspartate Amino Transferase 30 U/L (14-36); Bilirubin,Total 0.4 mg/dL (0.2-1.3); Blood Urea Nitrogen 12 mg/dL (7-17); Calcium 9.2 mg/dL (8.4-10.2); Carbon Dioxide 29 mmol/L (22-30); Chloride 105 mmol/L (98-107); Estimated Glomerular Filt Rate > 60; Glucose 89 mg/dL (65-110); Potassium 4.1 mmol/L (3.4-5.0); Sodium 138 mmol/L (137-145)
[2023-06-16 11:06] LABS: Add Urine Microscopic? NO
== END 2023-06-16 09:47 | disposition home or self-care (01) ==
LOC: ANHLAB 09:52
PROVIDERS: PCP Emergency Medicine; Visit Provider Emergency Medicine
DX: Z01.818 Encounter for other preprocedural examination (principal); I45.10 Unspecified right bundle-branch block
CPT/HCPCS: 36415; 71046; 80053; 81003; 85025; 93005

== ENCOUNTER 2023-07-05 09:41 | Outpatient (CLI) | payer OTHER, SELFPAY ==
--- NOTE | ~2023-07-05 | NM_ITS ---
EXAMINATION: NM zayra stress w perfusion DATE: 07/05/2023 11:46 INDICATION: Chest pain TECHNIQUE: Rest images were obtained following intravenous administration of 10 mCi Tc99m tetrofosmin (Myoview). The patient was infused intravenously with Lexiscan (Regadenoson). Then, 32.4 mCi Tc99m t etrofosmin (Myoview) was administered intravenously, and stress images were obtained. Data was recons tructed into short axis and horizontal and vertical long axis SPECT images. Gated SPECT images were a lso obtained. COMPARISON: None. FINDINGS: There is no definite reversible or fixed perfusion abnormality to suggest ischemia or infar ction. There is normal left ventricular chamber size, wall motion and ejection fraction. Left ventr icular ejection fraction measures 68%. IMPRESSION: 1. Normal myocardial perfusion at rest and during stress. 2. Left ventricular ejection fraction measuring 68%. Reviewed, dictated and finalized at location A. FOLDING HELPER
--- NOTE | 2023-07-05 09:46 | EST_ITS ---
Patient Info Name: Catherine Purvis Age: 43 years : 1980 Gender: Female Ht: 66 in Wt: 230 lbs BSA: 2.25 m2 HR: 86 bpm BP: 149 / 80 mmHg Heart Rhythm: Sinus Rhythm Exam Date: 07/05/2023 10:34 AM Exam Location: Echo Lab Patient Status: Outpatient Admit Date: 07/05/2023 Staff Ordering Physician: Severo Kelly DO Attending Provider: Severo Kelly DO Exercise Technologist: Brandy Grace CT Exercise Physician: Severo Kelly DO Exam Type: CA stress zayra w NM Study Info Indications R07.89 - Other chest pain Z01.810 - Encounter for preprocedural cardiovascular examination A regadenoson stress test was performed. Summary 1. 1. Negative lexiscan stress test for ischemic ST changes by ECG criteria. 2. 2. Baseline hypertension. 3. 3. Nuclear scan to follow and will be reported separately. Please correlate with it. 4. 4. Patient informed of the above results. Protocol: Lexiscan Stress ECG Details Stage: REST Duration (min): 1 min : 45 sec HR (bpm): 85 SBP (mmHg): 149 DBP (mmHg): 80 Stage: REST Duration (min): 8 min : 13 sec HR (bpm): 89 SBP (mmHg): 149 DBP (mmHg): 80 Stage: STAGE 1 Duration (min): 1 min : 0 sec HR (bpm): 116 SBP (mmHg): 168 DBP (mmHg): 76 Stage: RECOVERY Duration (min): 1 min : 0 sec HR (bpm): 115 SBP (mmHg): 168 DBP (mmHg): 76 Stage: RECOVERY Duration (min): 2 min : 0 sec HR (bpm): 112 SBP (mmHg): 168 DBP (mmHg): 76 Stage: RECOVERY Duration (min): 3 min : 0 sec HR (bpm): --- SBP (mmHg): 186 DBP (mmHg): 78 Stage: RECOVERY Duration (min): 3 min : 58 sec HR (bpm): 124 SBP (mmHg): 186 DBP (mmHg): 78 Rest HR: 89 bpm Peak HR: 132 bpm Rest Sys BP: 149 mmHg Peak Sys BP: 186 mmHg Max Pred HR: 177 bpm % Max Pred HR: 75 % Target HR: 150 bpm Max RPP: 24,552 bpm*mmHg Termination Reason: Completed protocol Cardiac Symptoms: Shortness of breath Total Time: 1 min : 0 sec Rest Oliva BP: 80 mmHg Peak Oliva BP: 78 mmHg Total Dose: 0.4 mg Resting ECG Sinus rhythm. Stress ECG No ST changes. Arrhythmias None. Report Signatures
== END 2023-07-05 09:42 | disposition home or self-care (01) ==
PROVIDERS: PCP Emergency Medicine; Visit Provider Internal Medicine Cardiovascular Disease
DX: R07.9 Chest pain, unspecified (principal)
CPT/HCPCS: 78452; 93017; A9502; J2785

== ENCOUNTER 2024-10-09 17:43 | Emergency (ER) | payer OTHER, SELFPAY ==
--- OUTSIDE RECORDS SUMMARY | 2024-10-09 17:45 | XMS_ITS | Patient Health Record ---
Author Organization [facility] marcial Address [address] [facility] [address] [place], [place] [id number] Care Team Providers Care Flamer After Lasting Name Role Phone TARA EASTMAN MD Primary Care Provider Vickie Payan Unavailable [phone] ALLERGIES Allergen (clinical drug ingredient) Drug/Non Drug Allergy documented on EMR Reaction Allergy Type Onset Date Status morphine morphine Itching Drug Allergy Active REASON FOR REFERRAL No Information MEDICATIONS Medication SIG (Take, Route, Frequency, Duration) Notes Start Date End Date Status Ambien 10 mg 1 tab(s) orally once a day (at bedtime) Active phentermine 37.5 mg 1 cap(s) orally once a day Active Hydroxychloroquine Sulfate 2 00 mg 1 tab(s) orally bid for 30 Active butalbital/acetaminophen/caf fe ine 50-325-40mg as needed Active SOCIAL HISTORY Tobacco Use: Social History Observation Description Date Details (start date - stop date) Never Smoker NA - NA Sex Assigned At : Social History Observation Description Sex Assigned At Unknown Tobacco Use: Question Answer Notes Smoking Status nonsmoker PROBLEMS Problem Type ICD Code Onset Dates Problem Status W/U Status Risk SNOMED Code Notes Problem Sleeping difficulty (G47.9) Active confirmed 837734413 Problem Polyarthralgia (M25.50) Active confirmed 34862785 Problem Myalgia (M79.10) Active confirmed 78330 001 Problem Miscarriage (O03.9) Active confirmed 17 548838 Problem Neuralgia (M79.2) Active confirmed 1626 9008 Problem Numbness and tingling (R20.2) Active confirmed Problem Anticardiolipin antibody syndrome (D68.61) Active confirmed 91621299 Problem Positive double stranded DNA antibody test (R76.8) Active confirmed 284114515 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) Active confirmed [id number] PLAN OF TREATMENT Pending Test Test Name Order Date X ray : Hand left- outside order X ray : Hand right- outside order 2019 X ray : SI joints- outside order P-ANCA, C-ANCA 09/20/2019 Eye exam - Plaquenil 10/03/2019 X ray : Foot Left- outside order X ray : Foot Right- outside order 2019 Insurance Providers Payer Name Payer Address Payer Phone Subscriber Number Group Number Insured Name Patient Relationship to Insured Coverage Start Date Coverage End Date [employer] [address] [place] [phone] [id number] NANCY PURVIS Spouse - patient is the spouse of the insured 7 MEDICAL (GENERAL) HISTORY Medical History History ICD Code bruises easily migraine headache tension headaches blurred vision ear ache loss of hearing Ringing in ears hayfever sinus problems dizziness swollen glands in neck swollen glands in groin anemia chest pain poor circulation heart attack Nausea extreme menstrual pain Hot Flashes fever, low grade vertigo chicken pox Surgical History Surgery Date(Month/Year) T & A 1985 C section 2005 tubal ligation 2005 uterine ablation 2017 Lasik 2018 VSG 2016
--- OUTSIDE RECORDS SUMMARY | 2024-10-09 17:45 | XMS_ITS | Continuity of Care Document ---
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 Name Role Phone Tan Valdivia MD Unavailable Unavailable Allergies, Adverse Reactions, Alerts Substance Reaction Status Criticality morphine Nausea/Vomiting Active No Informati on Medications Medication Instructions Dosage Effective Dates (start - stop) Status Comments cyclobenzaprine 10 mg tablet take 1 tablet by oral route 2 times every day as needed 10 MG - Active PRN for pain, avoid driving or operate machines Ambien 10 mg tablet take 1 tablet by oral route every day at bedtime as needed 10 MG - Active Qhs PRN, avoid driving or operate machines Zepbound 15 mg/0.5 mL subcutaneous pen injector inject (15MG) by subcutaneous route every week 15 MG - Active Lyrica 75 mg capsule take 1 capsule by oral route 2 times every day 75 MG - Active avoid driving or operate machines Procedures Procedure Date OFFICE/OUTPATIENT VISIT, EST OFFICE/OUTPATIENT VISIT, EST PREV VISIT, EST, AGE 40-64 OFFICE/OUTPATIENT VISIT, EST OFFICE/OUTPATIENT VISIT, EST OFFICE/OUTPATIENT VISIT, EST OFFICE/OUTPATIENT VISIT, EST OFFICE/OUTPATIENT VISIT, EST OFFICE/OUTPATIENT VISIT, EST OFFICE/OUTPATIENT VISIT, EST OFFICE/OUTPATIENT VISIT, EST PREV VISIT, EST, AGE 40-64 OFFICE/OUTPATIENT VISIT, EST OFFICE/OUTPATIENT VISIT, EST OFFICE/OUTPATIENT VISIT, EST OFFICE/OUTPATIENT VISIT, EST OFFICE/OUTPATIENT VISIT, EST OFFICE/OUTPATIENT VISIT, EST PREV VISIT, EST, AGE 40-64 OFFICE/OUTPATIENT VISIT, EST OFFICE/OUTPATIENT VISIT, EST OFFICE/OUTPATIENT VISIT, EST PREV VISIT, EST, AGE 40-64 OFFICE/OUTPATIENT VISIT, EST OFFICE/OUTPATIENT VISIT, EST OFFICE/OUTPATIENT VISIT, EST OFFICE/OUTPATIENT VISIT, EST OFFICE/OUTPATIENT VISIT, EST PREV VISIT, EST, AGE 18-39 OFFICE/OUTPATIENT VISIT, EST OFFICE/OUTPATIENT VISIT, EST OFFICE/OUTPATIENT VISIT, EST PREV VISIT, EST, AGE 18-39 OFFICE/OUTPATIENT VISIT, EST OFFICE/OUTPATIENT VISIT, EST OFFICE/OUTPATIENT VISIT, EST PREV VISIT, EST, AGE 18-39 OFFICE/OUTPATIENT VISIT, EST OFFICE/OUTPATIENT VISIT, EST OFFICE/OUTPATIENT VISIT, EST OFFICE/OUTPATIENT VISIT, EST OFFICE/OUTPATIENT VISIT, EST PREV VISIT, EST, AGE 18-39 OFFICE/OUTPATIENT VISIT, EST OFFICE/OUTPATIENT VISIT, EST PREV VISIT, NEW, AGE 18-39 Advance Directives Directive Yes / No Effective Date File Name No Information Encounters Encounter Description Practice Location Reason(s) For Visit Diagnoses Date Provider Providers Copied on Encounter [facility], [address] [place], [place], [address], [place] tel:[phone] [facility] No Information Patsy Maddox. [address], [place], [place], [address] , [place]. tel:[phone] OFFICE/OUTPA TIENT VISIT, EST [facility], [address], [place], [place], [address], [place] tel:[phone] [facility] weight loss1 (chief complaint) back pain1 (chief complaint) Abnormal weight lossLumbago with sciatica, right side August- 5 Skip Maddox. [address], [place], [place], [address] , [place]. tel:[phone] OFFICE/OUTPA TIENT VISIT, EST [facility], [address], [place], [place], [address], [place] tel:[phone] [facility] insomnia1 (chief complaint) weight loss1 (chief complaint) Abnormal weight lossOther insomnia Jul- 5 Skip Maddox. [address], [place], [place], [address] , [place]. tel:[phone] PREV VISIT, EST, AGE 40-64 [facility], [address], [place], [place], [address], [place] tel:[phone] [facility] physical (chief complaint) Encounter for general adult medical examination without abnormal findings Jun-0 5 Skip Maddox. [address], [place], [place], [address] , [place]. tel:[phone] OFFICE/OUTPA TIENT VISIT, EST [facility], [address], [place], [place], [address], [place] tel:[phone] [facility] weight loss1 (chief complaint) insomnia1 (chief complaint) back pain1 (chief complaint) Abnormal weight lossLumbago with sciatica, right sideOther insomniaGeneralized Anxiety Disorder 4 Skip Maddox. [address], [place], [place], [address] , [place]. tel:[phone] OFFICE/OUTPA TIENT VISIT, [facility], [address], [place], [place], [address], [place] tel:[phone] [facility] weight loss1 (chief complaint) lumbago1 (chief complaint) nausea1 (chief complaint) Abnormal weight lossNausea w/o vomitingLumbago with sciatica, right sideParesthesia of skin Jan- 5 4 Skpi Maddox. [address], [place], [place], [address] , [place]. tel:[phone] OFFICE/OUTPA TIENT VISIT, [facility], [address], [place], [place], [address], [place] tel:[phone] [facility] weight loss1 (chief complaint) Abnormal weight loss 4 Skip Maddox. [address], [place], [place], [address] , [place]. tel:[phone] OFFICE/OUTPA TIENT VISIT, [facility], [address], [place], [place], [address], [place] tel:[phone] [facility] weight loss1 (chief complaint) insomnia1 (chief complaint) Abnormal weight lossPrimary insomnia 4 Skip Maddox. [address], [place], [place], [address] , [place]. tel:[phone] OFFICE/OUTPA TIENT VISIT, [facility], [address], [place], [place], [address], [place] tel:[phone] [facility] weight loss1 (chief complaint) Abnormal weight loss August-0 4 Skip Maddox. [address], [place], [place], [address] , [place]. tel:[phone] OFFICE/OUTPA TIENT VISIT, [facility], [address], [place], [place], [address], [place] tel:[phone] [facility] weight1 (chief complaint) Abnormal weight gain Jul-0 4 Skip Maddox. [address], [place], [place], [address] , [place]. tel:[phone] OFFICE/OUTPA TIENT VISIT, EST [facility], [address], [place], [place], [address], [place] tel:[phone] [facility] back pain1 (chief complaint) HTN (chief complaint) Paresthesia of skinEssential (primary) hypertensionNausea w/o vomiting Fe- 4 Skip Tan. [address], [place], [place], [address] , [place]. tel:[phone] OFFICE/OUTPA TIENT VISIT, EST [facility], [address], [place], [place], [address], [place] tel:[phone] [facility] folate (chief complaint) MCV (chief complaint) insomnia1 (chief complaint) COIVD (chief complaint) Folate deficiencyPrimary insomniaViral infectionOther abnormality of red blood cellsSystemic lupus erythematosus, unspecifiedAbnormal weight gain 3 Skip Maddox. [address], [place], [place], [address] , [place]. tel:[phone] PREV VISIT, EST, AGE 40-64 [facility], [address] [place], [address], [place] tel:[phone] [facility] physical (chief complaint) Encounter for general adult medical exam w abnormal findingsPrimary insomniaAbnormal weight gain 3 Skip Maddox. [address], [place], [place], [address] , [place]. tel:[phone] OFFICE/OUTPA TIENT VISIT, EST [facility], [address] [place], [address], [place] tel:[phone] [facility] sick1 (chief complaint) back pain1 (chief complaint) Viral infectionMuscle spasm of back Jul-0 3 Skip Maddox. [address], [place], [place], [address] , [place]. tel:[phone] OFFICE/OUTPA TIENT VISIT, EST [facility], [address], [place], [place], [address], [place] tel:[phone] [facility] back pain1 (chief complaint) Other spondylosis, lumbar regionMuscle spasm of back 3 Valdivia Tan. [address], [place], [place], [address] , [place]. tel:[phone] OFFICE/OUTPA TIENT VISIT, EST [facility], [address], [place], [place], [address], [place] tel:[phone] [facility] back pain1 (chief complaint) HTN (chief complaint) Essential (primary) hypertensionMuscle spasm of backLumbago with sciatica, right side 2 Valdivia Tan. [address], [place], [place], [address] , [place]. tel:[phone] OFFICE/OUTPA TIENT VISIT, EST [facility], [address], [place], [place], [address], [place] tel:[phone] [facility] insomani1 (chief complaint) back pain1 (chief complaint) lupus1 (chief complaint) Primary insomniaSystemic lupus erythematosus, unspecifiedMuscle spasm of back 2 Skip Maddox. [address], [place], [place], [address] , [place]. tel:[phone] OFFICE/OUTPA TIENT VISIT, EST [facility], [address], [place], [place], [address], [place] tel:[phone] [facility] vertigo1 (chief complaint) insomnia1 (chief complaint) Benign paroxysmal vertigo, bilateralPrimary insomnia 2 Skip Maddox. [address], [place], [place], [address] , [place]. tel:[phone] PREV VISIT, EST, AGE 40-64 [facility], [address], [place], [place], [address], [place] tel:[phone] [facility] physical (chief complaint) Encounter for general adult medical exam w abnormal findingsMigraineIns omniaNeuropathyOthe r local lupus erythematosus Sep- 2 Skip Berger [address], [place], [place], [address] , [place]. tel:[phone] OFFICE/OUTPA TIENT VISIT, EST [facility], [address], [address], [place] tel:[phone] [facility] insomni1 (chief complaint) migraine1 (chief complaint) neuropathy 1 (chief complaint) InsomniaMigraineNeu ropathyEncounter for oth screening for malignant neoplasm of breast 1 Skip Berger [address], [place], [place], [address] , [place]. tel:[phone] OFFICE/OUTPA TIENT VISIT, EST [facility], [address], [place], [place], [address], [place] tel:[phone] [facility] folate1 (chief complaint) migraine1 (chief complaint) joint pain1 (chief complaint) HTN (chief complaint) Systemic lupus erythematosusMigrai neNeuropathyFolate deficiencyEssential (primary) hypertensionEncount er for oth screening for malignant neoplasm of breast 1 Skip Berger [address], [place], [place], [address] , [place]. tel:[phone] PREV VISIT, EST, AGE 40-64 [facility], [address], [place], [place], [address], [place] [phone] [facility] physical (chief complaint) Abnormal weight gainInsomniaMigrain eSystemic lupus erythematosusEncoun ter for general adult medical examination without abnormal findingsEncounter for general adult medical exam w abnormal findings 1 Skip Berger [address], [place], [place], [address] , [place]. tel:[phone] OFFICE/OUTPA TIENT VISIT, EST [facility], [address] [place], [address], [place] tel:[phone] [facility] memory loss1 (chief complaint) insomnia1 (chief complaint) weight gain1 (chief complaint) InsomniaNeuropathyA bnormal weight gainFatigue 0 Skip Berger [address], [place], [place], [address] , [place]. tel:[phone] OFFICE/OUTPA TIENT VISIT, EST [facility], [address], [place], [place], [address], [place] [phone] [facility] sick (chief complaint) sleep apnea (chief complaint) memory loss1 (chief complaint) headache1 (chief complaint) Viral infectionMemory lossHeadacheSleep apnea Dec- 0 Skip Berger [address], [place], [place], [address] , [place]. tel:[phone] OFFICE/OUTPA TIENT VISIT, EST [facility], [address] [place], [address], [place] tel:[phone] [facility] joint pain1 (chief complaint) fatigue1 (chief complaint) HeadacheMemory lossFatigueSystemic lupus erythematosus 0 Skip Berger [address], [place], [place], [address] , [place]. tel:[phone] OFFICE/OUTPA TIENT VISIT, EST [facility], [address] [place], [address], [place] tel:[phone] [facility] insomnia1 (chief complaint) weight gain1 (chief complaint) InsomniaAbnormal weight gain 0 Skip Berger [address], [place], [place], [address] , [place]. tel:[phone] PREV VISIT, EST, AGE 18-39 [facility], [address], [place], [place], [address], [place] tel:[phone] [facility] Physical (chief complaint) Encounter for general adult medical exam w abnormal findingsOtalgia, right earInsomniaAbnormal weight gainHeadache Bharat-0 8-202 0 Skip Berger [address], [place], [place], [address] , [place]. tel:[phone] Referring Provider: Stan [address], [place], [place], [address]. tel:[phone] OFFICE/OUTPA TIENT VISIT, EST [facility], [address], [place], [place], [address], [place] tel:[phone] [facility] allergy1 (chief complaint) insomnia1 (chief complaint) low folate1 (chief complaint) weight 1 (chief complaint) InsomniaAbnormal weight gainFolic acid deficiencyUrticaria 9-201 9 Skip Berger [address], [place], [place], [address] , [place]. tel:[phone] Referring Provider: Stan [address], [place], [place], [address]. tel:[phone] OFFICE/OUTPA TIENT VISIT, EST [facility], [address], [place], [place], [address], [place] tel:[phone] [facility] HTN (chief complaint) b12 (chief complaint) insomnia1 (chief complaint) weight gain1 (chief complaint) ThrombocytopeniaAbn ormal weight gainEssential (primary) hypertensionInsomni aBariatric surgery status 9 Skip Rosa[address], [place], [place], [address] , [place]. tel:[phone] Referring Provider: Stan Quin[address], [place], [place], [address]. tel:[phone] PREV VISIT, EST, AGE 18-39 [facility], [address], [place], [place], [address], [place] tel:[phone] [facility] Physical (chief complaint) Encounter for general adult medical exam w abnormal findingsThrombocyto peniaInsomniaZoster without complicationsBariat tolu surgery status 0-201 8 Skip Berger [address], [place], [place], [address] , [place]. tel:[phone] OFFICE/OUTPA TIENT VISIT, EST [facility], [address], [place], [place], [address], [place] tel:[phone] [facility] motion sickness1 (chief complaint) insomnia1 (chief complaint) InsomniaDizziness Jun- 3201 8 Skip Maddox. [address], [place], [place], [address] , [place]. tel:[phone] Referring Provider: Stan Quinones [address], [place], [place], [address]. tel:[phone] OFFICE/OUTPA TIENT VISIT, EST [facility], [address], [place], [place], [address], [place] tel:[phone] [facility] HTN (chief complaint) numnbess1 (chief complaint) Essential (primary) hypertensionParesth esia of skinHeadache Sep-0 7 Skip Maddox. [address], [place], [place], [address] , [place]. [phone] Referring Provider: Stan [address], [place], [place], [address]. tel:[phone] PREV VISIT, EST, AGE 18-39 [facility], [address], [place], [place], [address], [place] tel:[phone] [facility] PHysical (chief complaint) Encounter for general adult medical exam w abnormal findingsThrombocyto peniaInsomniaAbnorm al weight loss 0 7 Skip Maddox. [address], [place], [place], [address] , [place]. tel:[phone] Referring Provider: Stan Quinones [address], [place], [place], [address]. tel:[phone] OFFICE/OUTPA TIENT VISIT, EST [facility], [address], [place], [place], [address], [place] tel:[phone] [facility] insomnia1 (chief complaint) Insomnia 7 Skip Berger [address], [place], [place], [address] , [place]. tel:[phone] Referring Provider: Stan Quinones [address], [place], [place], [address]. tel:[phone] OFFICE/OUTPA TIENT VISIT, [facility], [address], [place], [place], [address], [place] tel:[phone] [facility] ear infection (chief complaint) vaginal yeast (chief complaint) insomnia1 (chief complaint) weight loss1 (chief complaint) Otitis mediaHematuriaInsom niaAbnormal weight loss 6 Skip Berger [address], [place], [place], [address] , [place]. tel:[phone] Referring Provider: Stan Quinones [address], [place], [place], [address]. tel:[phone] OFFICE/OUTPA TIENT VISIT, [facility], [address], [place], [place], [address], [place] tel:[phone] [facility] hand pain1 (chief complaint) platelet (chief complaint) hematuria (chief complaint) ThrombocytopeniaHem aturiaOther specified disease of bloodPain in left hand 6 Skip Berger [address], [place], [place], [address] , [place]. tel:[phone] Referring Provider: Stan Quinones [address], [place], [place], [address]. tel:[phone] OFFICE/OUTPA TIENT VISIT, [facility], [address] [place], [address], [place] tel:[phone] [facility] ekg (chief complaint) platelet (chief complaint) hematuria (chief complaint) ThrombocytopeniaHem aturiaAbnormal electrocardiogram [ECG] [EKG] 6 Skip Berger [address], [place], [place], [address] , [place]. tel:[phone] Referring Provider: Stan Quinones [address], [place], [place], [address]. tel:[phone] PREV VISIT, EST, AGE 18-39 [facility], [address], [place], [place], [address], [place] tel:[phone] [facility] Physical (chief complaint) Encounter for general adult medical exam w abnormal findingsGERD w/o esophagitisObesity 6 kSip Maddox. [address], [place], [place], [address] , [place]. [phone] Referring Provider: Stan Quin[address], [place], [place], [address]. tel:[phone] OFFICE/OUTPA TIENT VISIT, EST [facility], [address], [place], [place], [address], [place] tel:[phone] [facility] nausea (chief complaint) Abdominal PainNausea aloneHypertension, Unspecified 5 Skip Maddox. [address], [place], [place], [address] , [place]. tel:[phone] Referring Provider: Stan Quinones [address], [place], [place], [address]. tel:[phone] PREV VISIT, NEW, AGE 18-39 [facility], [address], [place], [place], [address], [place] tel:[phone] [facility] Physical (chief complaint) Dietary surveillance and counselingRoutine Medical ExamRoutine Medical Exam 4 Skip Maddox. [address], [place], [place], [address] , [place]. tel:[phone] Family History Family Member Type Diagnosis Age At Onset Brother Problem (finding) Alive and well Mother Problem (finding) Alive and well Father Problem (finding) Alive and well Payers Payer name Insurance type Covered libertarian ID Authoreltona jem(s) Shahana [id number] Social History Type Description Quantity Date Captured Comments Sex Female Smoking Status No Information Chief Complaint And Reason For Visit No Information Plan Of Treatment Date Type Action Status Goal Special diet education compl eted Goal Special diet education compl eted Goal Special diet education compl eted Goal Special diet education compl eted Referral Ordered: Ricco Flores -[facility]opathic & Osteopathic Physicians : Orthopaedic Surgery (related to Lumbago with sciatica, right side) ordered Referral Referred To: Ricco Flores [address] [place], [place], [id number] Ordered: Referrals: Allopathic & Osteopathic Physicians : Orthopaedic Surgery. Ricco Flores. Evaluate and treat ordered Referral Referred To: Severo Kelly [address] [place] [address], [phone] Ordered: Referrals: Severo Kelly. Evaluate and treat ordered Referral Ordered: EKG for initial prevent exam ordered Referral Ordered: CHEST X-RAY PA/LAT TWO-VIEWS ordered Referral Ordered: Neurosurgery (related to Other spondylosis, lumbar region) ordered Referral Ordered: Referrals: Neurosurgery. Evaluate and treat ordered Referral Ordered: MRI LUMBAR SPINE W/O DYE ordered Referral Ordered: Physical Therapy (related to Muscle spasm of back) ordered Referral Referred To: Physical Therapy Ordered: Referrals: Physical Therapy. Evaluate and treat ordered Referral Ordered: LUMBAR XRAY AP AND LAT ONLY ordered Referral Referred To: Tiffani Zapata [address] [place], [phone] Ordered: Referrals: Tiffani Zapata. Evaluate and treat ordered Referral Ordered: MAMMOGRAM, SCREENING ordered Referral Ordered: SLEEP STUDY, ATTENDED ordered Referral Ordered: Infectious Disease (related to Zoster without complications) ordered Referral Ordered: Referrals: Infectious Disease. Evaluate and treat ordered Referral Ordered: MRI BRAIN W/O & W/DYE ordered Referral Ordered: DOPPLER ECHO EXAM, HEART ordered Referral Ordered: US CAROTID ordered Referral Ordered: Hematology (related to Thrombocytopenia) ordered Referral Ordered: Cardiology (related to Abnormal electrocardiogram [ECG] [EKG]) ordered Referral Ordered: Referrals: Cardiology. Evaluate and treat ordered Referral Ordered: Referrals: Hematology ordered Referral Ordered: NUC MED HIDA (HEPATOBILIARY) SCAN ordered Referral Ordered: CT ABD & PELVIS W/O CONTRAST ordered History Of Present Illness Encounter Date Complaint History Of Prese nt Illness back pain1 Pt has chronic l ow back pain s/ L4/5 discectomy but she continues to have persistent low back pain with right sciatica. Pt denies any loss of bowel or bladder control or saddle area paresthesia. Pt needs to see .Christiana Ingram but needs referral weight loss1 pt is on zepboun d and she continues to lose weight. Pt tolerating zepbound ok. insomnia1 Pt has chronic i nsomnia pt takes ambien qhs and dong ok weight loss1 pt has been losi ng weight with wegovy. however, her weight loss has been plateaued with wegovy. Pt wants to lose 20 more pounds physical Pt needs annual physical Pt has been losing weight with wegovy Pt tolerating it ok Pt wants to lose 20 more pounds Pt has chronic low back pain Pt denies any loss of bowel or bladder control or saddle area paresthesia Pt needs some flexeril refilled Pt is s/p laminectomy but did not help her back pain. Neurosurgeon wants to do nerve ablation but insurance did not approve it .Pt also went to [facility] who recommended yoga only Pt c/o right sciatica . weight loss1 Pt has been losi ng weight with wegovy. Pt notices appetite loss Pt denies any abd pain nausea, vomiting, constipation insomnia1 Pt has chronic i nsomnia Pt takes ambien qhs PRn and doing ok back pain1 Pt has chronic l ow back pain with right sciatica and right leg neuropathy symptoms Pt denies any loss of bowel or bladder control or saddle area paresthesia. Pt states that lyrica is helping. Pt is seeing neurosurgeon and she will do MRI of L spine soon and she is claustrophobic and she wants something for anxiety for MRI nausea1 Pt has intermitt ent nausea post wegovy shot pt wants some zofran PRN lumbago1 Pt has chronic l ow back pain with right sciatica pt had L4/5 discectomy recently. Pt c/o persistent low back pain with right sciatica with right leg neuropathy symptoms. Pt wants to try lyrica again and also she wants handicap sticker weight loss1 Pt has been losi ng weight with wegovy Pt tolerating it well. weight loss1 Pt has been losi ng weight with diet and exercise and wegovy. Pt is on 1.7 mg SC weekly and tolerating it ok. Her renal function is ok weight loss1 Pt has been losi ng weight with wegovy 0.5 mg SC weekly Pt finished 6 weeks of wegovy 0.5 mg .Pt denies any side effects Pt notices slight appetite suppression Pt notices mild nausea occasionally without vomiting insomnia1 Pt has chronic i nsomnia . Pt takes ambien qhs and doing ok pt needs it refilled. weight loss1 Pt has been losi ng weight with diet and exercise and wegovy. Pt tolerating wegovy well. Pt denies any Gi side effects except for appetite loss. pt lost 11 pounds since starting wegovy last month weight1 Pt is obese Pt i s s/p gastric sleeve surgery but she continues to gain weight Pt states that she always feels hungry. her started wegovy last month and he lost 15 pounds .Pt wants to try wegovy also. back pain1 Pt has chronic l ow back pain with right sciatica and right leg numbness and tingling Pt denies any loss of bowel or bladder control or saddle area paresthesia pt sees neurosurgeon and she will have back surgery soon Pt needs surgical clearance. Pt needs lab work, chest x ray and EKG. Pt denies any chest pain or sob. Pt states that she usually gets very nauseated post op and she usually needs combination of zofran and also scopolamine patch to treat the nausea HTN Pt has HTN Pt at tributes to her back pain Pt denies any chest pain or headache or sob folate Pt has low folat e. Pt has been taking more folic acid supplement MCV pt has borderlin e low MCV. Pt is not anemic and she has normal iron panel. Pt denies any fatigue insomnia1 Pt has chronic i nsomnia. Pt doing ok with ambien qhs PRN and doing ok. Pt needs ambien refilled COIVD Pt contracted CO VID since 5 days ago Pt is vaccinated. Pt feels much better now with only mild fatigue and dry cough. Pt denies any fever. Pt denies any sob. physical Pt needs annual physical. Pt has chronic insomnia Pt takes ambien qhs and doing ok Pt denies any snoring Pt has chronic low back pain with sciatica and neuropathy symptoms Pt is seeing neurosurgeon and is planning for back surgery soon once it is approved by worker compensation insurance. Pt denies any loss of bowel or bladder control or saddle area paresthesia. Pt is on mobic from neurosurgery Pt has been gaining weight Pt wants to try phentermine again Pt also has connective tissue disease but no definitive diagnosis Pt is seeing rheumatology. back pain1 Pt c/o chronic l ow back pain with sciatica. Pt had MRi done which showed herniated lumbar disc around L4/5. Pt saw ortho spine recently and she will have epidural injection first. Pt denies any loss of bowel or bladder control or saddle area paresthesia sick1 Pt tested positi ve for COVID since on 07/25/22 and she started to have symptoms on 07/24/22. Pt c/o. fever, body ache, headache, mild sore throat, cough and mild sob. Pt has been home since 07/24/22. Pt is fully vaccinated with only one booster .Pt states that she is still having residual symptoms as of now including occasional fever as high as 102, headache, mild cough and chest congestion Pt denies any sob Pt denies any rash. Pt denies any sore throat or dysphagia. Pt had fever two days ago. Pt has been working from home but she needs a note for work back pain1 Pt c/o persisten t low back pain radiating to right buttock and posterior right thigh down to right knee level for 8 weeks after lifting somebody heavy. pt denies nay loss of bowel or bladder control or saddle area paresthesia. Pt c/o right sciatica and right leg heavy feeling and she feels slightly weak on her right leg pt states that PT made the pain worse .Pt c/o sharp pain with radiation of pain down to right leg. Pt had L spine x ray done but result not available. pt states that ultram and flexeril do help but makes her drowsy. Pt wants a referral to Dr. Gunderson (orthospine). Pt has 8/10 constant pain now. HTN Pt has mild HTN today. Pt denies any chest pain or headache Pt states that she is in pain back pain1 Pt c/o persisten t low back pain radiating to right buttock and posterior right thigh down to right knee level for two weeks after lifting somebody heavy two weeks ago. pt denies nay loss of bowel or bladder control or saddle area paresthesia. Pt has persist dull and sharp pain, worse with movement and ambulation. Pt states that lying down helps. Pt takes diclofenac, flexeril which makes her drowsy and only helps slightly. Pt states that norco makes her vomit so she can not tolerate it. pt has 6-7/10 pain constantly. Pt notices mild numbness right posterior leg. Pt notices mild subjective weakness right leg due to pain Pt denies any calf pain Pt denies any recent travel or bedrest Pt denies any chest pain or sob lupus1 pt saw rheumatol nancy and she was diagnosed with psoriasis arthritis with lupus. Pt is not on any meds yet. back pain1 Pt lifted a stacia ent last week and she felt acute onset of low back pain with shooting pain down to right leg. Pt denies any paresthesia Pt denies any loss of bowel or bladder control or saddle area paresthesia. Pt has 8/10 pain pt went to ER and she had lumbar CT which was benign per patient. Pt was given orphenadrine and also toradol which dd not help and she run out of above meds . Pt states that lying down help relieve the pain slightly. insomani1 Pt has chronic i nsomnia Pt takes ambien qhs PRn and doing ok Pt needs refill insomnia1 Pt hs chronic in somnia Pt takes ambien qhs and doing ok. Pt denies any snoring or any trouble with breathing at night vertigo1 Pt c/o acute ons et of vertigo since 4 days ago. Pt states the whole rooms spins when she moves her head. Pt states that turning her head side ways while lying in bed also makes her vertigo. Pt denies any vision change. Pt denies any ear pain or tinnitus. Pt denies any hearing loss. Pt denies any sinus symptoms Pt denies any headache or head injury. Pt failed meclizine OTC . Pt feels nausea during vertigo. Pt denies any headache Pt went to urgent care and was given meclizine but not working physical Pt needs annual physical Pt has SLE. Pt tried plaquenil but did not work. Pt wants to see Dr. Zapata(rheumatology) for SLE and she needs referral. Pt also has migraine headache and diffuse neuropathy. pt states that she got a new job with less stress and she has not experienced migraine very much lately. Pt never did NCS or followed up with neurology either. Pt has chronic insomnia Pt takes ambien qhs PRn and doing ok. Pt denies any other complaints neuropathy1 Pt has chronic p eripheral neuropathy, Pt failed lyrica. Pt has not done NCS yet. Pt has not followed up with neurology for a while. Pt also has lupus and joint pain Pt sees rheumatology but she does not want to try Plaquenil. insomni1 Pt has chronic i nsomnia pt takes ambien qhs and doing ok. Pt does not have sleep apnea. Pt needs refill Dec-01-2021 migraine1 Pt has chronic m igraine headache Pt states that lyrica makes her very fatigue and nauseated so she could not tolerate it and stopped it. Pt takes maxalt PRn for headache Pt states that she has migraine headache almost every other day. Pt had normal MRI of brain Pt has not followed up with neurology for a while . migraine1 Pt has migraine 3 times per week, Pt had normal MRI. Pt denies any head injury or waking up at night with headache Pt has throbbing headache with photophobia and nausea. Pt is seeing neurology Pt tried propranolol but did not help. Pt takes rizatriptan PRn which works ok. Pt denies any acute headache. joint pain1 Pt has lupus and diffuse joint pain with neuropathy. Pt sees neurology and rheumatology but Plaquenil did not help so she is off above. Pt failed Neurontin. Pt states that rheumatology wants her to take Plaquenil but she does not want it due ot not working folate1 Pt has low folat e. pt does have neuropathy. Pt is seeing neurology and she supposes to do NCS but she has not done that yet. HTN Pt has mild HTn today Pt denies any chest pain or headache. Pt is stressed out physical Pt needs annual physical. Pt has migraine headache. Pt states that propranolol has not helped by neurology. Pt had normal MRi. Pt still has frequent headache. Pt has peripheral neuropathy. Pt missed joe for NCS. Pt also has weight issue and also chronic insomnia Pt does not have sleep apnea Pt denies any other complaints memory loss1 Pt has memory lo ss and peripheral neuropathy and she had MRI of brain done which was normal per patient. Pt is seeing neurology now and she was started on propranolol and maxalt PRn. Pt has not had headache since starting propranolol. She will do NCS with EMG soon . insomnia1 Pt has insomnia. Pt takes ambien qhs PRn and doing ok. Pt denies any snoring pt had negative sleep study weight gain1 Pt gained some w eight gain. Pt wants to try phentermine again Pt has not had phentermine for over 6 months headache1 Pt has chronic h eadache with some blurred vision. pt has some left leg numbness and tingling .Pt still waiting for appointment with neurology. Pt could not tolerate MRI due to claustrophobia sick Pt c/o fever as high as 101, sore throat, sob, dry cough, overall malaise, loss of taste and smell for 4 days .Pt was tested negative for COVID-19 yesterday. Pt did have exposure to positive COVID-19 individual last week. Pt was sent home 3 days ago from work. Pt feels some myalgia Pt states that she has not noticed much improvement of her symptoms yet. Pt had fever of 101 this morning. Pt denies any nausea, vomiting, acute sob, hemoptysis. Pt is not working now due to above. PT denies any dysphagia memory loss1 Pt has mild shelli ry loss and fatigue. Pt states that ritalin did not work. Pt states that ritalin made her very tired. sleep apnea Additional infor storm: Pt has snoring Pt needs sleep study. Pt states that she is working [employer] regarding the sleep study Pt does NOT want to pay any out of pocket cost for the procedure. Pt does have chronic fatigue with mild snoring. joint pain1 Pt has diffuse j oint pain ,Pt recently saw forest technician who diagnosed you positive for lupus and anticardiolipin syndrome pt is on Plaquenil and ASA currently. Pt also has short term memory loss as well for unknown reason. Pt has some intermittent blurred vision as well. pt was referred to neurologist by rheumatology. Pt is still waiting for appointment .Pt has some vague headache with blurred vision and throbbing in nature Pt denies any head injury or waking up at night with headache. Pt had normal MRi several years ago Pt denies any head injury or waking up at night with headache. Pt feels some left leg numbness and tingling and weakness recently Pt denies any low back pain. Pt states that she is having difficulty with school. Pt has hard time to focus and concentration and she has hard time with timed testing in school. 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 fatigue1 Pt has chronic f atigue Pt denies any snoring. Pt does have insomnia pt takes ambien qhs PRn. pt denies waking up in the middle of the night when she takes ambien. Pt has difficulty with focus and concentration during the day time pt denies any sob weight gain1 Pt has been taki ng phentermine and she has not been taking it for 3 weeks. pt has not been able to lose weight. Pt has not diet and exercise recently Pt wants refill insomnia1 Pt has insomnia Pt takes ambien qhs and doing ok Pt denies any snoring or any trouble with breathing at night Pt denies any fatigue Physical Pt needs annual physical Pt c/o right ear pain and itching and pressure for 3-4 months Pt denies any drainage Pt denies any hearing loss ,Pt feels muffled. Pt denies any sinus congestion Pt denies any sore throat or coughing. Pt c/o mild headache around right side of temporal area, Pt saw ENT and she was on steroid oil and was on prednisone and some polyneomycin drop which did not help either pt has insomnia and refill phentermine. Pt denies any other complaints. Pt went to ER for headache last week and she had negative head Ct pt has throbbing headache and occurs 1-2 per week for the past 3 months, PT has been more stressed lately. allergy1 Pt had acute all ergic reaction during anatomy class to dissect cat last week. Pt thinks that she is allergic to preservative of the cat Pt started to notices itchy eyes, scratchy throat, diffuse itching and also hives around neck area shortly exposing herself to the formaldehyde Pt had to leave class and she needs note. Pt took some benadryl and feels fine now. Pt denies any trouble with breathing or swallowing insomnia1 Pt has insomnia Pt does not snore or having any trouble with breathing at night. Pt denies any fatigue. Pt needs ambien refilled low folate1 Pt is taking OTC folic acid now. weight 1 Pt lost close to 30 pounds with phentermine. Pt finished phentermine 2-3 weeks ago. Pt feels more energy HTN Pt has HTN. Pt d enies any chest pain or headache b12 Pt has low b12 a nd low D. Pt has not been taking any vitamin supplement. pt feels fatigue. Pt tanya any snoring or any trouble with breathing at night insomnia1 Pt has chronic i nsomnia. pt takes ambien PRN and doing ok. weight gain1 Pt has gained 20 pounds since 1.5 years ago post sleeve. Pt states that she has been diet and execising Physical Pt needs annual physical. Pt had gastric sleeve two years ago and she lost 80 pounds but she has been gaining her weight back during recent 6 months. Pt denies any change in diet and activity Pt has insomnia Pt takes ambien qhs PRn Pt does not have any snoring or any trouble with breathing at night Pt also has recurrent shingle infection Pt has shingle about twice per year Pt had shingle on her right abdominal area and diagnosed with shingle last month. Pt thinks that it is induced by stress Pt wants to find out about shingle vaccine pt denies any other complaints motion sickness1 Pt will go on c rusise and she has seasick. Pt wants scopolamine patch and zofran. Pt denies any other issue. insomnia1 Pt rarely uses a mbien. Pt sleeping ok now numnbess1 Pt states that s he was cutting up vegetable in her kitchen 3 days ago and she felt sudden onset of numnbess left hand then radiating to left arm and also left side of face. Pt states that she lost fine motor skills left hand with dificulty with grasping during the incident. Pt denies any weakness. Pt denies any syncope. Pt states that she has some mild throbbing right side headache post the incident. Pt denies any speech issue or any facial droop. Pt states that her left eye feels small floaters and flashy but she denies any vision loss or blurred vision. Pt denies any visual field loss. Pt states that her symptoms went away after 3 mins. Pt states that she canot feel anything on left arm and face and she canot feel anything which resolved after 3 mins Pt currently denies any symptoms. Pt has been having some vague headache for 3 weeks. pt feels tension type of headache and sometimes behind eyes occuring 1-2 per week, which helps with tylenol. Pt denies any headache now HTN Pt has mild HTN today. Pt denies any chest pain Pt has history of HTn before the francie loss surgery and her BP has been ok until today. PHysical Pt has annual ph ysical. Pt had sleeve surgery. Pt lost total of 60 pounds. pt deneis any GI issue now Pt has chronic insomnia. Pt deneis any snore or any trouble with breathing at night Pt denies any fatigue. Pt takes ambien PRN and doing ok Pt denies any other complaints. insomnia1 P thas insomnia. Pt states that ambien CR worked but too expensive Pt denies any snoring. pt wants to try regular ambien. Pt has been using it PRN ear infection Pt recently went to urgent care for ear pain. Pt c/o right ear pain. Pt is on day 9 of augmentin. PT states taht she still has right ear pain with muffled hearing. Pt denies any sore throat or sinus symptoms or cough. Pt denies any fever vaginal yeast Pt c/o vaginal y east infection for two days/ Pt c/o itching. Pt denies any vaginal discharge insomnia1 Pt has been havi ng insomnia for several months Pt states that she could not fall asleep. Pt states that she canot stay asleep either. Pt feels tired in AM. Pt denies any snoring. weight loss1 Pt has been losi ng weight post sleeve. Pt denies any abd pain. hematuria Pt has mild ember turia. Pt denie any UTI symptoms platelet Pt has low plate let and she is seeing hematology for it. Her platelet bounced back slighlty. Pt was told it may be due to viral infection. Pt also has small MCV but she is not anemic. hand pain1 Pt accidently hi t left hand on wheelchair last tuesday and she notices pain around base of thumb. Pt denies any numnbess. Pt went to ER and had negative left hand and wrist xray. Pt denies any swelling or bruising. 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 Pt denies any chest pian. Pt is not aware of any heart attacks. Pt is overweight platelet Pt has low plate let. Pt denies any bruising or bleeding. Pt does not have any history of liver disease hematuria PT denies any UT i symptoms. Pt denies any flank pain Physical Pt needs annual physical. Pt has chronic GERD and she takes zegrid daily and working ok. Pt denies any abd pain. Pt states that sometimes she has to take more than one zegrid. Pt will have gastric sleeve done next month and needs surgical clearnace. Pt denies any history of adverse reaction to surgery or anesthesia. Pt denies any chest pain, SOB. Pt denies any other complaints Instructions Date Instruction Additional Infor mation Special diet education Related t o Body mass index (BMI) 31.0-31.9, adult Weight management Related to Enc ounter for general adult medical exam w abnormal findings Special diet education Related t o Body mass index (BMI) 31.0-31.9, adult Weight management Related to Ins omnia Special diet education Related t o Body mass index (BMI) 35.0-35.9, adult Special diet education Related t o Body mass index (BMI) 33.0-33.9, adult Weight management Related to Ins omnia Prescribed Activity and Exercise Education Related to Dietary Surveillance and Counseling Prescribed Diet Educ ation/Lifestyle Education Regarding Diet Related to Dietary Surveillance and Counseling Increase physical activity Relat ed to Insomnia Prescribed Activity and Exercise Education Related to Dietary Surveillance and Counseling Prescribed Diet Educ ation/Lifestyle Education Regarding Diet Related to Dietary Surveillance and Counseling Follow a low sodium diet. Relate d to Essential (primary) hypertension Follow a low sodium diet. Relate d to Essential (primary) hypertension Prescribed Diet Educ ation/Lifestyle Education Regarding Diet Related to Dietary Surveillance and Counseling Increase physical activity Relat ed to Encounter for general adult medical exam w abnormal findings Weight management Related to Enc ounter for general adult medical exam w abnormal findings Prescribed Activity and Exercise Education Related to Dietary Surveillance and Counseling Prescribed Diet Educ ation/Lifestyle Education Regarding Diet Related to Dietary Surveillance and Counseling Prescribed Activity and Exercise Education Related to Dietary Surveillance and Counseling Prescribed Activity and Exercise Education Related to Dietary Surveillance and Counseling Prescribed Diet Educ ation/Lifestyle Education Regarding Diet Related to Dietary Surveillance and Counseling Prescribed Diet Educ ation/Lifestyle Education Regarding Diet Related to Dietary Surveillance and Counseling Prescribed Activity and Exercise Education Related to Dietary Surveillance and Counseling Prescribed Diet Educ ation/Lifestyle Education Regarding Diet Related to Dietary Surveillance and Counseling Prescribed Activity and Exercise Education Related to Dietary Surveillance and Counseling Dietary counseling Related to Di etary surveillance counseling Decrease caloric intake Related to Dietary surveillance counseling Assessments Type Assessment Date No Information
--- OUTSIDE RECORDS SUMMARY | 2024-10-09 17:45 | XMS_ITS | Clinical Summary ---
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 Name Role Phone Tan Valdivia MD Primary Care Provider Allergies Active Allergy Reactions Criticality Noted Date Comments Morphine Unknown,Nausea And Vomiting 09/03/19 16 Medications diazePAM (VALIUM) 5 mg tablet TK 1 T PO 30 MIN BEFORE PROCEDURE PRN 0 Active hydrOXYchloroQUINE (PLAQUENIL) 200 mg tablet TAKE 1 TABLET BY MOUTH TWICE DAILY FOR 30 DAYS 0 Active hydrOXYchloroQUINE (PLAQUENIL) 200 mg tablet every 12 hours 0 Active methylphenidate HCl (RITALIN) 10 mg tablet TK 1 T PO BID 0 Active omeprazole (PriLOSEC) 20 mg capsule Take 20 mg by mouth daily Active ondansetron ODT (ZOFRAN-ODT) [address] 4 mg under the tongue every 6 (six) hours as needed 6 Active phentermine 37.5 mg capsule daily Active zolpidem (AMBIEN) 10 mg tablet TK 1 T PO QD HS PRN 0 Active fluocinolone in oil (DermOtic) 0.01 % dropsIndications:O titis Externa Eczema Use 1 to 2 drops once a day 20 mL 6 0 Active Active Problems Problem Noted Date Diagnosed Date Antiphospholipid syndrome 02/05/2020 Difficulty sleeping 02/05/2020 Miscarriage 02/05/2020 Myalgia 02/05/2020 Neuralgia 02/05/2020 Other terminal carman (current) drug therapy 0 Polyarthralgia 02/05/2020 Positive double stranded DNA antibody test 02/04 Skin sensation disturbance 02/05/2020 Gastroesophageal reflux disease without esophagi tis 09/10/2015 General medical exam 09/10/2015 Obstructive sleep apnea 09/10/2015 Abdominal pain 06/24/2014 Essential hypertension 06/24/2014 Social History Tobacco Use Types Packs/Day Years Used Date Smoking Tobacco: Never Assessed Personal Safety Answer Date Recorded Getting School Help Needed Not on file 04/15 Comments Unknown Sex and Gender Information Value Date Recorded Sex Assigned at Not on file Legal Sex Female 10:18 AM HEADER DOCK Gender Identity Female 05/06/2022 7:59 AM HEADER DOCK Sexual Orientation Not on file Last Filed Vital Signs Vital Sign Reading Time Taken Comments Blood Pressure 99/77 07/01/2016 6:47 PM HEADER DOCK Pulse 98 07/01/2016 6:47 PM HEADER DOCK Temperature 36.8 C (98.3 F) 07/01/2016 6:47 PM HEADER DOCK Respiratory Rate - - Oxygen Saturation 100% 07/01/2016 6:47 PM HEADER DOCK Inhaled Oxygen Concentration - - Weight 83.9 kg (185 lb) 07/01/2016 6:47 PM HEADER DOCK Height 167.6 cm (5' 6) 07/01/2016 6:47 PM HEADER DOCK Body Mass Index 29.86 07/01/2016 6:47 PM HEADER DOCK Plan of Treatment Health Maintenance Due Date Last Done Comments Cervical Cancer Screening 1980 Depression Screening 1980 Hepatitis C Screening 1980 Varicella Vaccines (1 of 2 - 13+ 2-dose series) 1993 Regular Well Visit/Exam 18-64 1998 Pneumococcal vaccine <65 (1 of 2 - PCV) 07/04/1999 Zoster Vaccine (1 of 2) 07/04/1999 Breast Cancer Screening-Mammogram 05/10/2023 05/10/2022 Influenza Vaccine (Season Ended) 2024 02/24/2019, 03/05/2018, 05/02/2016, Additional history exists DTaP/Tdap/Td Vaccine (2 - Td or Tdap) 11/06/2026 11/06/2016 Hepatitis B Screening Completed 05/02/2017 HPV Vaccines Aged Out No longer eligi ble based on patient's age to complete this topic Procedures Procedure Name Priority Date/Time Associated Diagnosis Comments SCREENING MAMMOGRAM BILATERAL W CELSO Schedule Routine, Read Routine (OP Routine) 05/10/2022 11:14 AM HEADER DOCK Screening mammogram, encounter for from Last 3 Months or Most Recently Relevant to Health Maintenance Results * Screening Mammogram Bilateral W Celso (05/10/2022 11:14 AM HEADER DOCK) Anatomical Region Laterality Modality Breast Bilateral Mammography Narrative 05/11/2022 2:53 PM HEADER DOCK Mammogram Technique: Bilateral Digital Breast Tomosynthesis, Bilateral C-view 2D Screening mammogram. Views obtained: bilateral craniocaudal and bilateral mediolateral oblique. Computer Aided Detection was performed. Mammogram Findings: This is a baseline study. The breasts are heterogeneously dense, which may obscure small masses. There is no suspicious abnormality in either breast. Impression: There is no mammographic evidence of malignancy. Annual screening mammography is recommended. OVERALL FINAL ASSESSMENT: BI-RADS CATEGORY 1: Negative. Procedure Note Lana Salguero MD - 05/11/2022 Mammogram Technique: Bilateral Digital Breast Tomosynthesis, Bilateral C-view 2D Screening mammogram. Views obtained: bilateral craniocaudal and bilateral mediolateral oblique. Computer Aided Detection was performed. Mammogram Findings: This is a baseline study. The breasts are heterogeneously dense, which may obscure small masses. There is no suspicious abnormality in either breast. Impression: There is no mammographic evidence of malignancy. Annual screening mammography is recommended. OVERALL FINAL ASSESSMENT: BI-RADS CATEGORY 1: Negative. 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
--- OUTSIDE RECORDS SUMMARY | 2024-10-09 17:46 | XMS_ITS | Patient Health Record ---
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 Role Phone Tan Valdivia Primary Care Provider Jesús [facility] [phone] ALLERGIES Allergen (clinical drug ingredient) Drug/Non Drug Allergy documented on EMR Reaction Allergy Type Onset Date Status morphine Morphine rash/hives Drug Allergy Active Latex Latex Unknown Allergy Active cortisone Cortisone steroids/rash /hives Drug Allergy Active hydromorphone Dilaudid rash/hives Drug Allergy Ac tive RESULTS Component Value Reference Range Notes X ray : Lumbar spine 5 views , AP, Lateral, Spot, Flexion and Extension Reviewed date:07/05/2024 12:20:47 PM Interpretation:1020 Performing Lab: Notes/Report: 1020 REASON FOR REFERRAL No Information MEDICATIONS Medication SIG (Take, Route, Fr equency, Duration) Notes Start Date End Date Status Meloxicam Not-Taking Gabapentin Not-Takin g Tylenol Active ibuprofen Active Lyrica Active Aspirin 81 Active Diclofenac Active Ambien Not-Taking Phentermine HCl Not- Taking Flexeril Not-Taking VITAL SIGNS Height 66 in 07/05/2024 Weight 160 lbs 07/05/2024 BMI 25.82 kg/m2 07/05/2024 Encounters Encounter Location Date Provider Diagnosis [facility] [address] [facility] [address] [place] [address] 07/05/2024 Jesús Barksdale Herniation of lumbar intervertebral disc with radiculopathy M51.16 ; Disc Degeneration, Lumbar Region with Leg Pain M51.361 and Back strain S39.012A [facility], [address] [facility] [address] [place] [address] 08/20/2024 Jesús Barksdale [facility] [address] [place] [address] 08/30/2024 Jesús Barksdale ASSESSMENTS Encounter Date Diagnosis Assessment Notes Treatment Notes Treatment Clinical Notes Section Notes 07/05/2024 Herniation of lumbar intervertebral disc with radiculopathy (ICD-10 - M51.16) <b>IMPRESSION:</b> Back strain secondary to injury 04/06/2022 Lumbar radiculopathy Lumbar HNP L4-5 on right S/P LDL and discectomy L4-5 on right Failed back surgery Persisting lumbar radiculopathy Disc degeneration <b>DISCUSSION:</b> It is my opinion the treatment to date has been reasonable and necessary to address the complaints associated with the patient's 04/06/2022 injury. It is my opinion she has not reached MMI. She can return to work duties with lifting less than 35 pounds. I would recommend that she undergo a R. L4 SNRI to try to confirm that that is the site responsible for her complaints. I would recommend that she undergo discograms at L4-5 and L5-S1. Following completion of those procedures, I would be happy to re-evaluate the patient or review the results. I will now answer the questions submitted in your letter. <u>What is claimant's current diagnosis</u>? Done. <u>What are claimant's significant subjective complaints</u>? Done. <u>Do these complaints correspond with your diagnosis</u>? Yes. <u>Do claimant's subjective complaints correlate with your objective exam findings</u>? Yes. <u>Has all treatment, testing, etc. to date represented reasonable and/or necessary medical treatment</u>? Yes. <u>Are you in agreement with the Utilization Review decision regarding the referral to pain management for right L5-S3 medial branch blocks/radiofreque ncy ablation</u>? No. It is my opinion there is no indication that the patient's facet disease is responsible for her complaints. Her complaints are primarily right-sided and more typical for a radiculopathy. I recommend that she undergo a right L4 SNRI and lumbar discogram/post-dis cogram CT at L4-5 and L5-S1 to try to clarify the origin of her complaints. <u>Do you believe the claimant requires any additional treatment at this time</u>? It is possible based on the results of the right L4 SNRI and lumbar discogram procedures. The need for these procedures is causally related to her work injury. <u>Do you believe the claimant requires any work limitations or restrictions at this time</u>? Yes. It is my opinion she can return to work with a 35 pound lifting limit. <u>Has the claimant reached MMI regarding the alleged work injury</u>? No. Depending on how quickly the diagnostic studies are performed and how soon I can actually evaluate the results would determine my recommendations regarding the need, if any, for additional treatment. All of my opinions have been expressed to a reasonable degree of medical certainty. [facility] 07/05/2024 Disc Degeneration, Lumbar Region with Leg Pain (ICD-10 - M51.361) <b>IMPRESSION:</b> Back strain secondary to injury 04/06/2022 Lumbar radiculopathy Lumbar HNP L4-5 on right S/P LDL and discectomy L4-5 on right Failed back surgery Persisting lumbar radiculopathy Disc degeneration <b>DISCUSSION:</b> It is my opinion the treatment to date has been reasonable and necessary to address the complaints associated with the patient's 04/06/2022 injury. It is my opinion she has not reached MMI. She can return to work duties with lifting less than 35 pounds. I would recommend that she undergo a R. L4 SNRI to try to confirm that that is the site responsible for her complaints. I would recommend that she undergo discograms at L4-5 and L5-S1. Following completion of those procedures, I would be happy to re-evaluate the patient or review the results. I will now answer the questions submitted in your letter. <u>What is claimant's current diagnosis</u>? Done. <u>What are claimant's significant subjective complaints</u>? Done. <u>Do these complaints correspond with your diagnosis</u>? Yes. <u>Do claimant's subjective complaints correlate with your objective exam findings</u>? Yes. <u>Has all treatment, testing, etc. to date represented reasonable and/or necessary medical treatment</u>? Yes. <u>Are you in agreement with the Utilization Review decision regarding the referral to pain management for right L5-S3 medial branch blocks/radiofreque ncy ablation</u>? No. It is my opinion there is no indication that the patient's facet disease is responsible for her complaints. Her complaints are primarily right-sided and more typical for a radiculopathy. I recommend that she undergo a right L4 SNRI and lumbar discogram/post-dis cogram CT at L4-5 and L5-S1 to try to clarify the origin of her complaints. <u>Do you believe the claimant requires any additional treatment at this time</u>? It is possible based on the results of the right L4 SNRI and lumbar discogram procedures. The need for these procedures is causally related to her work injury. <u>Do you believe the claimant requires any work limitations or restrictions at this time</u>? Yes. It is my opinion she can return to work with a 35 pound lifting limit. <u>Has the claimant reached MMI regarding the alleged work injury</u>? No. Depending on how quickly the diagnostic studies are performed and how soon I can actually evaluate the results would determine my recommendations regarding the need, if any, for additional treatment. All of my opinions have been expressed to a reasonable degree of medical certainty. [facility] 07/05/2024 Back strain (ICD-10 - S39.012A) <b>IMPRESSION:</b> Back strain secondary to injury 04/06/2022 Lumbar radiculopathy Lumbar HNP L4-5 on right S/P LDL and discectomy L4-5 on right Failed back surgery Persisting lumbar radiculopathy Disc degeneration <b>DISCUSSION:</b> It is my opinion the treatment to date has been reasonable and necessary to address the complaints associated with the patient's 04/06/2022 injury. It is my opinion she has not reached MMI. She can return to work duties with lifting less than 35 pounds. I would recommend that she undergo a R. L4 SNRI to try to confirm that that is the site responsible for her complaints. I would recommend that she undergo discograms at L4-5 and L5-S1. Following completion of those procedures, I would be happy to re-evaluate the patient or review the results. I will now answer the questions submitted in your letter. <u>What is claimant's current diagnosis</u>? Done. <u>What are claimant's significant subjective complaints</u>? Done. <u>Do these complaints correspond with your diagnosis</u>? Yes. <u>Do claimant's subjective complaints correlate with your objective exam findings</u>? Yes. <u>Has all treatment, testing, etc. to date represented reasonable and/or necessary medical treatment</u>? Yes. <u>Are you in agreement with the Utilization Review decision regarding the referral to pain management for right L5-S3 medial branch blocks/radiofreque ncy ablation</u>? No. It is my opinion there is no indication that the patient's facet disease is responsible for her complaints. Her complaints are primarily right-sided and more typical for a radiculopathy. I recommend that she undergo a right L4 SNRI and lumbar discogram/post-dis cogram CT at L4-5 and L5-S1 to try to clarify the origin of her complaints. <u>Do you believe the claimant requires any additional treatment at this time</u>? It is possible based on the results of the right L4 SNRI and lumbar discogram procedures. The need for these procedures is causally related to her work injury. <u>Do you believe the claimant requires any work limitations or restrictions at this time</u>? Yes. It is my opinion she can return to work with a 35 pound lifting limit. <u>Has the claimant reached MMI regarding the alleged work injury</u>? No. Depending on how quickly the diagnostic studies are performed and how soon I can actually evaluate the results would determine my recommendations regarding the need, if any, for additional treatment. All of my opinions have been expressed to a reasonable degree of medical certainty. [facility] PLAN OF TREATMENT No Information Insurance Providers Payer Name Payer Address Payer Phone Subscriber Number Group Number Insured Name Patient Relationship to Insured Coverage Start Date Coverage End Date [facility] [address] [place] [address] [id number] Catherine Purvis Self - patient is the insured 2 MEDICAL (GENERAL) HISTORY Medical History History ICD Code HBP TIA/stroke Lupus Bleeding problems Psoriatic arthritis Back pain/injury 04/06/2022 Herniated disc associated with injury Numbness in R. foot at times Depression Denies being hospitalized for psychiatri c condition Denies h/o drug/chemical dependency Surgical History Surgery Date(Month/Year) Right shoulder 2001 2005 VSG 2016 LASIK 2017 Hysterectomy 11/2021 LDL and discectomy 07/2023
--- OUTSIDE RECORDS SUMMARY | 2024-10-09 17:46 | XMS_ITS ---
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
--- OUTSIDE RECORDS SUMMARY | 2024-10-09 17:46 | XMS_ITS | Referral Summary ---
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 0 Polyarthralgia 02/05/2020 Positive [...] on file Legal Sex Female 10:18 AM SCIENTIFIC DIRECTOR Gender Identity Female 05/06/2022 7:59 AM SCIENTIFIC DIRECTOR Sexual Orientation Not on file Last Filed Vital Signs Vital Sign Reading Time Taken Comments Blood Pressure 99/77 07/01/2016 6:47 PM SCIENTIFIC DIRECTOR Pulse 98 07/01/2016 6:47 PM SCIENTIFIC DIRECTOR Temperature 36.8 C (98.3 F) 07/01/2016 6:47 PM SCIENTIFIC DIRECTOR Respiratory Rate - - Oxygen Saturation 100% 07/01/2016 6:47 PM SCIENTIFIC DIRECTOR Inhaled Oxygen Concentration - - Weight 83.9 kg (185 lb) 07/01/2016 6:47 PM SCIENTIFIC DIRECTOR Height 167.6 cm (5' 6) 07/01/2016 6:47 PM SCIENTIFIC DIRECTOR Body Mass Index 29.86 07/01/2016 6:47 PM SCIENTIFIC DIRECTOR Plan of Treatment Not on file Procedures Procedure Name Priority Date/Time Associated Diagnosis Comments SCREENING MAMMOGRAM BILATERAL W CELSO Schedule Routine, Read Routine (OP Routine) 05/10/2022 11:14 AM SCIENTIFIC DIRECTOR Screening mammogram, encounter for from Last 3 Months or Most Recently Relevant to Health Maintenance Results * Screening Mammogram Bilateral W Celso (05/10/2022 11:14 AM SCIENTIFIC DIRECTOR) Anatomical Region Laterality Modality Breast Bilateral Mammography Narrative 05/11/2022 2:53 PM SCIENTIFIC DIRECTOR Mammogram Technique: Bilateral Digital Breast Tomosynthesis, Bilateral [...] Most Recently Relevant to Health Maintenance Insurance [employer] Care Teams Silica Spray Mixer Relationship Specialty Start Date End Date Tan Valdivia MD [address] [place] [address] PCP - General Family Medicine 02/05/20
--- OUTSIDE RECORDS SUMMARY | 2024-10-09 17:46 | XMS_ITS ---
Author Organization [facility], Address [address] [place] [address] Care Team Providers Care Clinical Nursing Intern Name Role Phone Tan Valdivia Primary Care Provider Jesús Bowles [facility] [phone] ALLERGIES Allergen (clinical drug ingredient) Drug/Non Drug Allergy documented on EMR Reaction Allergy Type Onset Date Status Latex Latex Unknown Allergy Active cortisone Cortisone steroids/rash /hives Drug Allergy Active hydromorphone Dilaudid rash/hives Drug Allergy Ac tive morphine Morphine rash/hives Drug Allergy Active RESULTS Component Value Reference Range Notes X ray : Lumbar spine 5 views , AP, Lateral, Spot, Flexion and Extension Reviewed date:07/05/2024 12:20:47 PM Interpretation:1020 Performing Lab: Notes/Report: 1020 REASON FOR VISIT Dai Avendaño / , DOI: 04/06/2022 / Claim # [id number], [facility] - low back MEDICATIONS Medication SIG (Take, Route, Fr equency, Duration) Notes Start Date End Date Status Meloxicam Not-Taking Gabapentin Not-Takin g Ambien Not-Taking Phentermine HCl Not- Taking Flexeril Not-Taking Tylenol Active ibuprofen Active Lyrica Active Aspirin 81 Active Diclofenac Active VITAL SIGNS BMI 25.82 kg/m2 07/05/2024 Height 66 in 07/05/2024 Weight 160 lbs 07/05/2024 Encounters Encounter Location Date Provider Diagnosis [facility] [address] [place] [address] 07/05/2024 Jesús Barksdale Herniation of lumbar intervertebral disc with radiculopathy M51.16 ; Disc Degeneration, Lumbar Region with Leg Pain M51.361 and Back strain S39.012A ASSESSMENTS Encounter Date Diagnosis Assessment Notes Treatment [...] to a reasonable degree of medical certainty. [facility] 07/05/2024 Disc Degeneration, Lumbar Region with Leg [...] to a reasonable degree of medical certainty. [facility] 07/05/2024 Back strain (ICD-10 - S39.012A) <b>IMPRESSION:</b> [...] to a reasonable degree of medical certainty. [facility]/clm PLAN OF TREATMENT No Information Progress Notes * Examination Category Sub-Category Detail Notes Category Not es X-ray Interpretation Five vi ews L-spine obtained today including flexion/extension films reveal evidence of facet degeneration from L2 to S1. Diminished disc space height at L4-5 as compared to the other levels. No evidence of obvious instability on flexion/extension films. General Examination GENERAL: Patient is a lert and cooperative. She moves about the room without significant difficulty. She does not walk with a list/limp NECK: No tenderness to pal pation, no spasm, near full ROM. Spurling's test negative NEUROLOGIC: UE neurologic exam r eveals symmetric DTR's, intact sensation, 5+/5+ motor strength. Enrrique's sign negative. LE neurologic exam reveals decreased sensation involving R. lateral calf and R. dorsal foot. Muscle strength testing 5+/5+. DTR's 2+. Seated and supine SLR testing negative SKIN: No evidence of skin rashes or dermal lesions MUSCULOSKELETAL: Thoracic exam reveal s no spasm, no tenderness. Lumbar exam reveals a well-healed lower back incision along midline of spine, non-tender, no erythema, no induration, no swelling. Lumbar ROM reveals FF 30 degrees, EXT 25 degrees, SB 40 degrees. When asked if she exercises or performs stretching exercises regularly, she informs me that she doesn't. She sits in a chair at 90 degrees. She can heel and toe walk HEENT: No masses, PERRLA, E OM intact, no nasal drainage, no lymphadenopathy JOINTS: Hip log roll testing negative. Hip ROM reduced in internal rotation bilaterally. FABERE test negative MRI Imaging Studies MRI L-sp ine with/without gadolinium performed on 03/20/2024 reveals evidence of mild diminished disc space height and advanced disc desiccation at L4-5. Mild to moderate disc desiccation at L3-4. Well preserved disc space height and good disc signal at L1-2, L2-3, L5-S1. There does not appear to be evidence of a recurrent disc herniation at L4-5. There is evidence of bilateral foraminal narrowing at L4-5. History and Physical Notes * HPI (History of Present Illness) Category Sub-Category Detail Notes Category Not es Lower back Catherine Purvis is a 44-year-old female evaluated at your request today, 07/05/2024 for the purpose of establishing a current diagnosis, to comment on the need for further diagnostic or medical measures and to determine if the patient can work with or without restrictions. This report is compiled through the patient's verbal history, review of the supplied medical records and diagnostic studies and the patient's physical examination. Ms. Purvis is accompanied by her . I certify there is no conflict of interest in performing this examination. Ms. Purvis was previously seen by me for an Independent Medical Evaluation on 12/06/2022 for the same injury. 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 She was assisting the patient to get into her bed. 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 She reported that the patient had poor muscle control due to her stroke. She reported that her legs were dangling off the bed and she grabbed her legs to put them into the bed. As she lifted the patient's legs to move them, she felt a pop in her back and then developed right-sided low back pain. She subsequently underwent medical treatment. At the time I evaluated her on 12/06/2022, she continued to c/o back pain radiating into the RLE. She had undergone treatment with Dr. Gunderson. That treatment included an DAHIANA. I performed a physical examination, which revealed evidence of neurologic changes involving the RLE consistent with an active radiculopathy. I reviewed her MRI study, which revealed evidence of a disc protrusion on the right at L4-5. It was my opinion her complaints were causally related to her work injury. It was my opinion she had not reached MMI. It was my opinion the treatment to date had been reasonable and necessary to address the complaints associated with her injury of 04/06/2022. It was my opinion she could return to work with a 15 pound lifting limit. I dictated a letter of addendum on 04/21/2023 after reviewing additional medical records. Those records documented that Dr. Gunderson planned on performing surgical intervention to the L-spine to address her current complaints. It was my opinion surgery consisting of a laminectomy and discectomy at L4-5 was reasonable and the need for that procedure was related to her injury of 04/06/2022. <b><u>Verbal History / Present Complaints</b></u> Ms. Purvis reports that she underwent a LDL and discectomy on 07/12/2023. She reports that following the surgical procedure she did not obtain significant improvement in her complaints. She continued to c/o back pain radiating into the R. leg with tingling and numbness involving the R. leg. She states she was referred to PT. They performed dry needling, but it did not offer significant improvement in her complaints. She reports that Dr. Gunderson eventually recommended a repeat MRI of the L-spine in 03/2024. She states he told her that she did not have a recurrent disc herniation. He informed her there was nothing more he could offer her and he referred her to pain management. She presents today with c/o severe lower lumbar back pain radiating into the RLE with weakness and numbness involving the R. leg. Symptoms are worsened with standing, walking, sitting, bending and tend to be improved with lying down, resting. There has been some loss of bowel/bladder function, but she denies any incontinence and she is not wearing an adult diaper. She reports that her ability to walk long distances has reduced. She can walk about 1 block. She uses Lyrica 75 mg BID and nmht-vjl-yhpijse Tylenol and Ibuprofen to moderate her complaints. 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 <b><u>Review of Supplied Records</b></u> The records include [employer] regarding several recommended treatment modalities by Dr. Gunderson. Note from Dr. Gunderson dated 07/25/2023 indicates Ms. Purvis was seen in follow-up following a laminectomy at L5-S1. She was 2 weeks postop. She c/o back pain radiating into the RLE. She was running low on her medications. She was diagnosed with radiculopathy and s/p LDL and discectomy. He recommended that she start PT and remain in an LSO. She was allowed to lift up to [address] Gunderson dated 09/05/2023 indicates Ms. Purvis presented for re-evaluation. They discussed return to work restrictions. She rated her pain as 7/10. She was attending PT. Her medications included Gabapentin and Meloxicam. He recommended that she start on Pregabalin 75 mg 1 capsule QHS. The date of the surgical procedure was 07/12/2023. Note from Dr. Gunderson dated 10/17/2023 indicates Ms. Purvis continued to c/o severe 7/10 back pain radiating from the back into the R. hip and R. leg. He recommended that she continue on her medications. He recommended that she discontinue Meloxicam due to GI intolerance and start on Diclofenac, continue PT dry needling. X-rays were performed. She was allowed to return to work with a 20 pound lifting limit. Note from Dr. Gunderson dated 01/10/2024 indicates Ms. Purvis continued to c/o back pain radiating into the RLE. She reported that her surgical site had caved in. No acute abnormalities were noted. She was told to use Lidocaine patches and Diclofenac gel. Note from Dr. Gunderson dated 03/22/2024 indicates Ms. Purvis reported that her surgical site had caved in. She complained that her toes occasionally experienced zingers. She rated her pain as 8-10/10. Her examination revealed decreased sensation involving the R. lateral leg. Positive SLR testing on the R. Tenderness to palpation involving the L3-[address] Gunderson recommended an MRI of the L-spine to determine the etiology of her complaints. MRI report of the L-spine dated 03/30/2024 indicates postop changes at the L4-5 level. According to the report, the post-enhanced images did not reveal evidence of a recurrent disc herniation. Mild foraminal narrowing. Note from Dr. Gunderson dated 04/06/2024 indicates Ms. Purvis presented for re-evaluation. Her pain level was still high rated as 8/10. Her complaints continued to radiate into the RLE. She was diagnosed with sacroiliitis and radiculopathy. He reviewed her MRI, which revealed postoperative changes at L4-5, no recurrent disc herniation. He recommended additional conservative measures. Note from Dr. Gunderson dated 06/11/2024 indicates Ms. Purvis presented for re-evaluation. Her complaints involving the back and R. leg persisted. She failed PT and use of Gabapentin. She was currently taking Lyrica. Dr. Gunderson recommended a referral to pain management for medial branch blocks. <b><u>Records from [facility]</b></u> Records from Geni Gunderson, Physical Therapist indicate Ms. Purvis c/o back pain radiating into the RLE. She rated her pain as 7/10. PT was initiated to moderate complaints and improve function. PT note dated 11/07/2023 indicates dry needling was performed. Exercises correcting SI malalignment and improving strength and endurance were noted. PT note dated 11/18/2023 indicates she continued to c/o pain that she rated as 6/10. It did not appear that PT was offering significant improvement in her complaints. PT note dated 12/02/2023 indicates she reported her pain as 8/10. Additional exercises and modalities were provided to try to moderate symptoms and improve function. PT note dated 12/09/2023 indicates she continued to c/o severe 6/10 pain radiating from the back into the RLE. She tolerated exercises and modalities to moderate symptoms. PT note dated 12/12/2023 indicates she continued to c/o back pain radiating into the RLE. She rated her pain as 7/10, which is in the severe range. Therapeutic exercises, manual therapy and modalities were provided. PT note dated 12/16/2023 indicates she continued to c/o 6/10 severe low back and RLE complaints. There was no significant improvement in her symptoms with PT. Additional PT was provided. PT note dated 12/26/2023 indicates she reported her pain as 8/10. Her R. leg complaints were the same. Additional treatment interventions were provided. PT note dated 01/04/2024 indicates she reported that her back and R. leg complaints persisted. She rated her pain as 7/10. Additional treatment was provided.
--- OUTSIDE RECORDS SUMMARY | 2024-10-09 17:46 | XMS_ITS | Continuity of Care Document ---
Author Organization [facility] Address [address] [place] [address] [place] [address] Phone Care Team Providers Care Lab Manager Name Role Phone Tan Valdivia MD Unavailable Unavailable Allergies, Adverse Reactions, Alerts Substance Reaction Status Criticality morphine Nausea/Vomiting Active No Informati on Medications Medication Instructions Dosage Effective Dates (start - stop) Status Comments cyclobenzaprine 10 mg tablet take 1 tablet by oral route 2 times every day as needed 10 MG - Active PRN for pain, avoid driving or operate machines Zepbound 15 mg/0.5 mL subcutaneous pen injector inject (15MG) by subcutaneous route every week 15 MG - Active Ambien 10 mg tablet take 1 tablet by oral route every day at bedtime as needed 10 MG - Active Qhs PRN, avoid driving or operate machines Lyrica 75 mg capsule take 1 capsule [...] Diagnoses Date Provider Providers Copied on Encounter [facility], [address] [place], [place], [address], [place] tel:[phone] [facility] No Information Patsy Maddox. [address], [place], [place], [address] , [place]. tel:[phone] OFFICE/OUTPA TIENT VISIT, EST [facility], [address], [place], [place], [address], [place] tel:[phone] [facility] weight loss1 (chief complaint) back pain1 (chief complaint) Abnormal weight lossLumbago with sciatica, right side August- 5 Skip Maddox. [address], [place], [place], [address] , [place]. tel:[phone] OFFICE/OUTPA TIENT VISIT, EST [facility], [address], [place], [place], [address], [place] tel:[phone] [facility] insomnia1 (chief complaint) weight loss1 (chief complaint) Abnormal weight lossOther insomnia Jul- 5 Skip Maddox. [address], [address], [place], [place], [address] , [place]. tel:[phone] PREV VISIT, EST, AGE 40-64 [facility], [address], [place], [place], [address], [place] tel:[phone] [facility] physical (chief complaint) Encounter for general adult medical examination without abnormal findings Jun-0 5 Skip Maddox. [address], [place], [place], [address] , [place]. tel:[phone] OFFICE/OUTPA TIENT VISIT, EST [facility], [address], [place], [place], [address], [place] tel:[phone] [facility] weight loss1 (chief complaint) insomnia1 (chief complaint) back pain1 (chief complaint) Abnormal weight lossLumbago with sciatica, right sideOther insomniaGeneralized Anxiety Disorder 4 Skip Maddox. [address], [place], [place], [address] , [place]. tel:[phone] OFFICE/OUTPA TIENT VISIT, [facility], [address], [place], [place], [address], [place] tel:[phone] [facility] weight loss1 (chief complaint) lumbago1 (chief complaint) nausea1 (chief complaint) Abnormal weight lossNausea w/o vomitingLumbago with sciatica, right sideParesthesia of skin Jan- 5 4 Skip Maddox. [address], [address], [place], [place], [address] , [place]. tel:[phone] OFFICE/OUTPA TIENT VISIT, [facility], [address], [place], [place], [address], [place] tel:[phone] [facility] weight loss1 (chief complaint) Abnormal weight loss 4 Skip Maddox. [address], [address], [place], [place], [address] , [place]. tel:[phone] OFFICE/OUTPA TIENT VISIT, [facility], [address], [place], [place], [address], [place] tel:[phone] [facility] weight loss1 (chief complaint) insomnia1 (chief complaint) Abnormal weight lossPrimary insomnia 4 Skip Maddox. [address], [address], [place], [place], [address] , [place]. tel:[phone] OFFICE/OUTPA TIENT VISIT, [facility], [address], [place], [place], [address], [place] tel:[phone] [facility] weight loss1 (chief complaint) Abnormal weight loss August-0 4 Skip Maddox. [address], [place], [place], [address] , [place]. tel:[phone] OFFICE/OUTPA TIENT VISIT, [facility], [address], [place], [place], [address], [place] tel:[phone] [facility] weight1 (chief complaint) Abnormal weight gain Jul-0 4 Skip Maddox. [address], [place], [place], [address] , [place]. tel:[phone] OFFICE/OUTPA TIENT VISIT, EST [facility], [address], [place], [place], [address], [place] tel:[phone] [facility] back pain1 (chief complaint) HTN (chief complaint) Paresthesia of skinEssential (primary) hypertensionNausea w/o vomiting Fe- 4 Skip Tan. [address], [place], [place], [address] , [place]. tel:[phone] OFFICE/OUTPA TIENT VISIT, EST [facility], [address], [place], [place], [address], [place] tel:[phone] [facility] folate (chief complaint) MCV (chief complaint) insomnia1 (chief complaint) COIVD (chief complaint) Folate deficiencyPrimary insomniaViral infectionOther abnormality of red blood cellsSystemic lupus erythematosus, unspecifiedAbnormal weight gain 3 Skip Maddox. [address], [place], [place], [address] , [place]. tel:[phone] PREV VISIT, EST, AGE 40-64 [facility], [address] [place], [address], [place] tel:[phone] [facility] physical (chief complaint) Encounter for general adult medical exam w abnormal findingsPrimary insomniaAbnormal weight gain 3 Skip Maddox. [address], [place], [place], [address] , [place]. tel:[phone] OFFICE/OUTPA TIENT VISIT, EST [facility], [address] [place], [address], [place] tel:[phone] [facility] sick1 (chief complaint) back pain1 (chief complaint) Viral infectionMuscle spasm of back Jul-0 3 Skip Maddox. [address], [place], [place], [address] , [place]. tel:[phone] OFFICE/OUTPA TIENT VISIT, EST [facility], [address], [place], [place], [address], [place] tel:[phone] [facility] back pain1 (chief complaint) Other spondylosis, lumbar regionMuscle spasm of back 3 Valdivia Tan. [address], [place], [place], [address] , [place]. tel:[phone] OFFICE/OUTPA TIENT VISIT, EST [facility], [address], [place], [place], [address], [place] tel:[phone] [facility] back pain1 (chief complaint) HTN (chief complaint) Essential (primary) hypertensionMuscle spasm of backLumbago with sciatica, right side 2 Valdivia Tan. [address], [place], [place], [address] , [place]. tel:[phone] OFFICE/OUTPA TIENT VISIT, EST [facility], [address], [place], [place], [address], [place] tel:[phone] [facility] insomani1 (chief complaint) back pain1 (chief complaint) lupus1 (chief complaint) Primary insomniaSystemic lupus erythematosus, unspecifiedMuscle spasm of back 2 Skip Maddox. [address], [place], [place], [address] , [place]. tel:[phone] OFFICE/OUTPA TIENT VISIT, EST [facility], [address], [place], [place], [address], [place] tel:[phone] [facility] vertigo1 (chief complaint) insomnia1 (chief complaint) Benign paroxysmal vertigo, bilateralPrimary insomnia 2 Skip Maddox. [address], [place], [place], [address] , [place]. tel:[phone] PREV VISIT, EST, AGE 40-64 [facility], [address], [place], [place], [address], [place] tel:[phone] [facility] physical (chief complaint) Encounter for general adult medical exam w abnormal findingsMigraineIns omniaNeuropathyOthe r local lupus erythematosus Sep- 2 Skip Berger [address], [place], [place], [address] , [place]. tel:[phone] OFFICE/OUTPA TIENT VISIT, EST [facility], [address] [place], [address], [place] tel:[phone] [facility] insomni1 (chief complaint) migraine1 (chief complaint) neuropathy 1 (chief complaint) InsomniaMigraineNeu ropathyEncounter for oth screening for malignant neoplasm of breast 1 Skip Berger [address], [place], [place], [address] , [place]. tel:[phone] OFFICE/OUTPA TIENT VISIT, EST [facility], [address], [place], [place], [address], [place] tel:[phone] [facility] folate1 (chief complaint) migraine1 (chief complaint) joint pain1 (chief complaint) HTN (chief complaint) Systemic lupus erythematosusMigrai neNeuropathyFolate deficiencyEssential (primary) hypertensionEncount er for oth screening for malignant neoplasm of breast 1 Skip Berger [address], [place], [place], [address] , [place]. tel:[phone] PREV VISIT, EST, AGE 40-64 [facility], [address], [place], [place], [address], [place] [phone] [facility] physical (chief complaint) Abnormal weight gainInsomniaMigrain eSystemic lupus erythematosusEncoun ter for general adult medical examination without abnormal findingsEncounter for general adult medical exam w abnormal findings 1 Skip Berger [address], [place], [place], [address] , [place]. tel:[phone] OFFICE/OUTPA TIENT VISIT, EST [facility], [address] [place], [address], [place] tel:[phone] [facility] memory loss1 (chief complaint) insomnia1 (chief complaint) weight gain1 (chief complaint) InsomniaNeuropathyA bnormal weight gainFatigue 0 Skip Berger [address], [place], [place], [address] , [place]. tel:[phone] OFFICE/OUTPA TIENT VISIT, EST [facility], [address], [place], [place], [address], [place] [phone] [facility] sick (chief complaint) sleep apnea (chief complaint) memory loss1 (chief complaint) headache1 (chief complaint) Viral infectionMemory lossHeadacheSleep apnea Dec- 0 Skip Berger [address], [place], [place], [address] , [place]. tel:[phone] OFFICE/OUTPA TIENT VISIT, EST [facility], [address] [place], [address], [place] tel:[phone] [facility] joint pain1 (chief complaint) fatigue1 (chief complaint) HeadacheMemory lossFatigueSystemic lupus erythematosus 0 Skip Berger [address], [place], [place], [address] , [place]. tel:[phone] OFFICE/OUTPA TIENT VISIT, EST [facility], [address] [place], [address], [place] tel:[phone] [facility] insomnia1 (chief complaint) weight gain1 (chief complaint) InsomniaAbnormal weight gain 0 Skip Berger [address], [place], [place], [address] , [place]. tel:[phone] PREV VISIT, EST, AGE 18-39 [facility], [address], [place], [place], [address], [place] tel:[phone] [facility] Physical (chief complaint) Encounter for general adult medical exam w abnormal findingsOtalgia, right earInsomniaAbnormal weight gainHeadache Bharat-0 8-202 0 Skip Berger [address], [place], [place], [address] , [place]. tel:[phone] Referring Provider: Stan [address], [place], [place], [address]. tel:[phone] OFFICE/OUTPA TIENT VISIT, EST [facility], [address], [place], [place], [address], [place] tel:[phone] [facility] allergy1 (chief complaint) insomnia1 (chief complaint) low folate1 (chief complaint) weight 1 (chief complaint) InsomniaAbnormal weight gainFolic acid deficiencyUrticaria 9-201 9 Skip Berger [address], [place], [place], [address] , [place]. tel:[phone] Referring Provider: Stan [address], [place], [place], [address]. tel:[phone] OFFICE/OUTPA TIENT VISIT, EST [facility], [address], [place], [place], [address], [place] tel:[phone] [facility] HTN (chief complaint) b12 (chief complaint) insomnia1 (chief complaint) weight gain1 (chief complaint) ThrombocytopeniaAbn ormal weight gainEssential (primary) hypertensionInsomni aBariatric surgery status 9 Skip Rosa[address], [place], [place], [address] , [place]. tel:[phone] Referring Provider: Stan [address], [place], [place], [address]. tel:[phone] PREV VISIT, EST, AGE 18-39 [facility], [address], [place], [place], [address], [place] tel:[phone] [facility] Physical (chief complaint) Encounter for general adult medical exam w abnormal findingsThrombocyto peniaInsomniaZoster without complicationsBariat tolu surgery status 0-201 8 Skip Berger [address], [place], [place], [address] , [place]. tel:[phone] OFFICE/OUTPA TIENT VISIT, EST [facility], [address], [place], [place], [address], [place] tel:[phone] [facility] motion sickness1 (chief complaint) insomnia1 (chief complaint) InsomniaDizziness Jun- 3201 8 Skip Maddox. [address], [place], [place], [address] , [place]. tel:[phone] Referring Provider: Stan Quinones [address], [place], [place], [address]. tel:[phone] OFFICE/OUTPA TIENT VISIT, EST [facility], [address], [place], [place], [address], [place] tel:[phone] [facility] HTN (chief complaint) numnbess1 (chief complaint) Essential (primary) hypertensionParesth esia of skinHeadache Sep-0 7 Skip Maddox. [address], [place], [place], [address] , [place]. [phone] Referring Provider: Stan [address], [place], [place], [address]. tel:[phone] PREV VISIT, EST, AGE 18-39 [facility], [address], [place], [place], [address], [place] tel:[phone] [facility] PHysical (chief complaint) Encounter for general adult medical exam w abnormal findingsThrombocyto peniaInsomniaAbnorm al weight loss 0 7 Skip Maddox. [address], [place], [place], [address] , [place]. tel:[phone] Referring Provider: Stan Quinones [address], [place], [place], [address]. tel:[phone] OFFICE/OUTPA TIENT VISIT, EST [facility], [address], [place], [place], [address], [place] tel:[phone] [facility] insomnia1 (chief complaint) Insomnia 7 Skip Berger [address], [place], [place], [address] , [place]. tel:[phone] Referring Provider: Stan Quinones [facility] [address], [place], [place], [address]. tel:[phone] OFFICE/OUTPA TIENT VISIT, [facility], [address], [place], [place], [address], [place] tel:[phone] [facility] ear infection (chief complaint) vaginal yeast (chief complaint) insomnia1 (chief complaint) weight loss1 (chief complaint) Otitis mediaHematuriaInsom niaAbnormal weight loss 6 Skip Berger [address], [place], [place], [address] , [place]. tel:[phone] Referring Provider: Stan Quinones [address] [facility] [address], [place], [place], [address]. tel:[phone] OFFICE/OUTPA TIENT VISIT, [facility], [address], [place], [place], [address], [place] tel:[phone] [facility] hand pain1 (chief complaint) platelet (chief complaint) hematuria (chief complaint) ThrombocytopeniaHem aturiaOther specified disease of bloodPain in left hand 6 Skip Berger [address], [place], [place], [address] , [place]. tel:[phone] Referring Provider: Stan Quinones [address], [place], [place], [address]. tel:[phone] OFFICE/OUTPA TIENT VISIT, [facility], [address] [place], [address], [place] tel:[phone] [facility] ekg (chief complaint) platelet (chief complaint) hematuria (chief complaint) ThrombocytopeniaHem aturiaAbnormal electrocardiogram [ECG] [EKG] 6 Skip Berger [address], [place], [place], [address] , [place]. tel:[phone] Referring Provider: Stan Quinones [address], [place], [place], [address]. tel:[phone] PREV VISIT, EST, AGE 18-39 [facility], [address], [place], [place], [address], [place] tel:[phone] [facility] Physical (chief complaint) Encounter for general adult medical exam w abnormal findingsGERD w/o esophagitisObesity 6 Skip Maddox. [address], [place], [place], [address] , [place]. [phone] Referring Provider: Stan Quinones [address], [place], [place], [address]. tel:[phone] OFFICE/OUTPA TIENT VISIT, EST [facility], [address], [place], [place], [address], [place] tel:[phone] [facility] nausea (chief complaint) Abdominal PainNausea aloneHypertension, Unspecified 5 Skip Maddox. [address], [place], [place], [address] , [place]. tel:[phone] Referring Provider: Stan Quinones [address], [place], [place], [address]. tel:[phone] PREV VISIT, NEW, AGE 18-39 [facility], [address], [place], [place], [address], [place] tel:[phone] [facility] Physical (chief complaint) Dietary surveillance and counselingRoutine Medical ExamRoutine Medical Exam 4 Skip Maddox. [address], [place], [place], [address] , [place]. tel:[phone] Family History Family Member Type Diagnosis Age At Onset Brother Problem (finding) Alive and well Mother Problem (finding) Alive and well Father Problem (finding) Alive and well Payers Payer name Insurance type Covered republican ID Authoreltona jem(s) Shahana [id number] Social History Type Description Quantity Date Captured [...] Referral Referred To: Ricco Flores [address] [place], [place], [address] Ordered: Referrals: Allopathic & Osteopathic Physicians : Orthopaedic Surgery. Ricco Flores. Evaluate and treat ordered Referral Referred To: Severo Kelly [address] [place] [address], [phone] Ordered: Referrals: Severo Kelly. Evaluate and treat [...] ONLY ordered Referral Referred To: Tiffani Zapata [address] [place], [phone] Ordered: Referrals: Tiffani Zapata. Evaluate and treat [...] Date Complaint History Of Prese nt Illness weight loss1 pt is on zepboun d and she continues to lose weight. Pt tolerating zepbound ok. back pain1 Pt has chronic l ow back pain s/ L4/5 discectomy but she continues to have persistent low back pain with right sciatica. Pt denies any loss of bowel or bladder control or saddle area paresthesia. Pt needs to see .Christiana Ingram but needs referral insomnia1 Pt has chronic i nsomnia pt [...] yoga only Pt c/o right sciatica . insomnia1 Pt has chronic i nsomnia Pt [...] she wants something for anxiety for MRI weight loss1 Pt has been losi ng weight with wegovy. Pt notices appetite loss Pt denies any abd pain nausea, vomiting, constipation weight loss1 Pt has been losi ng weight with wegovy Pt tolerating it well. lumbago1 Pt has chronic l ow back pain with right sciatica pt had L4/5 discectomy recently. Pt c/o persistent low back pain with right sciatica with right leg neuropathy symptoms. Pt wants to try lyrica again and also she wants handicap sticker nausea1 Pt has intermitt ent nausea post wegovy shot pt wants some zofran PRN weight loss1 Pt has been losi ng [...] no definitive diagnosis Pt is seeing rheumatology. sick1 Pt tested positi ve for COVID [...] note for work back pain1 Pt c/o chronic l ow back pain with sciatica. Pt had MRi done which showed herniated lumbar disc around L4/5. Pt saw ortho spine recently and she will have epidural injection first. Pt denies any loss of bowel or bladder control or saddle area paresthesia back pain1 Pt c/o persisten t low [...] Pt denies any chest pain or sob insomani1 Pt has chronic i nsomnia Pt takes ambien qhs PRn and doing ok Pt needs refill back pain1 Pt lifted a stacia ent [...] lying down help relieve the pain slightly. lupus1 pt saw rheumatol nancy and she was diagnosed with psoriasis arthritis with lupus. Pt is not on any meds yet. vertigo1 Pt c/o acute ons et of [...] and was given meclizine but not working insomnia1 Pt hs chronic in somnia Pt takes ambien qhs and doing ok. Pt denies any snoring or any trouble with breathing at night physical Pt needs annual physical Pt has [...] doing ok. Pt denies any other complaints insomni1 Pt has chronic i nsomnia pt takes ambien qhs and doing ok. Pt does not have sleep apnea. Pt needs refill neuropathy1 Pt has chronic p eripheral neuropathy, Pt failed lyrica. Pt has not done NCS yet. Pt has not followed up with neurology for a while. Pt also has lupus and joint pain Pt sees rheumatology but she does not want to try Plaquenil. Dec-01-2021 migraine1 Pt has chronic m igraine [...] not had phentermine for over 6 months sleep apnea Additional infor storm: Pt has snoring Pt needs sleep study. Pt states that she is working [employer] regarding the sleep study Pt does NOT want to pay any out of pocket cost for the procedure. Pt does have chronic fatigue with mild snoring. memory loss1 Pt has mild shelli ry loss and fatigue. Pt states that ritalin did not work. Pt states that ritalin made her very tired. headache1 Pt has chronic h eadache with [...] due to above. PT denies any dysphagia joint pain1 Pt has diffuse j oint pain ,Pt recently saw paperboard machine operator who diagnosed you positive for lupus and [...] the day time pt denies any sob insomnia1 Pt has insomnia Pt takes ambien qhs and doing ok Pt denies any snoring or any trouble with breathing at night Pt denies any fatigue weight gain1 Pt has been taki ng phentermine and she has not been taking it for 3 weeks. pt has not been able to lose weight. Pt has not diet and exercise recently Pt wants refill Physical Pt needs annual physical Pt c/o [...] uses a mbien. Pt sleeping ok now HTN Pt has mild HTN today. Pt denies any chest pain Pt has history of HTn before the francie loss surgery and her BP has been ok until today. numnbess1 Pt states that s he was [...] with tylenol. Pt denies any headache now PHysical Pt has annual ph ysical. Pt [...] post sleeve. Pt denies any abd pain. hand pain1 Pt accidently hi t left hand on wheelchair last tuesday and she notices pain around base of thumb. Pt denies any numnbess. Pt went to ER and had negative left hand and wrist xray. Pt denies any swelling or bruising. platelet Pt has low plate let and she is seeing hematology for it. Her platelet bounced back slighlty. Pt was told it may be due to viral infection. Pt also has small MCV but she is not anemic. hematuria Pt has mild ember turia. 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 Pt denies any chest pian. Pt is [...] o Body mass index (BMI) 33.0-33.9, adult Prescribed Activity and Exercise Education Related to Dietary Surveillance and Counseling Prescribed Diet Educ ation/Lifestyle Education Regarding Diet Related to Dietary Surveillance and Counseling Increase physical activity Relat ed to Insomnia Weight management Related to Ins omnia Prescribed Activity and Exercise Education Related to Dietary Surveillance and Counseling Prescribed Diet Educ ation/Lifestyle Education Regarding Diet Related to Dietary Surveillance and Counseling Follow a low sodium diet. Relate d to Essential (primary) hypertension Follow a low sodium diet. Relate d to Essential (primary) hypertension Prescribed Activity and Exercise Education Related to [...] Diet Related to Dietary Surveillance and Counseling Dietary counseling Related to Di etary surveillance counseling Decrease caloric intake Related to Dietary surveillance counseling Assessments Type Assessment Date No Information
--- OUTSIDE RECORDS SUMMARY | 2024-10-09 17:46 | XMS_ITS | Continuity of Care Document ---
Author Organization [facility] Address [address] [place] [address] Phone Care Team Providers Care Forging Press Setter Up Name Role Phone Azucena BRIGGS, Andres Unavailable Unavailable Allergies, Adverse Reactions, Alerts Substance Reaction Status Criticality latex Active No Information Medications Medication Instructions Dosage Effective Dates (start - stop) Status Comments Ambien 10 mg tablet take 1 tablet by oral route every day at bedtime 10 MG - Active hydroxychloroquine 200 mg tablet take 1 tablet by oral route 2 times every day 200 MG - Active Procedures Procedure Date SCODI, Retina Visual Field Examination(s) Eye Exam, New Patient Advance Directives Directive Yes / No Effective Date File Name No Information Encounters Encounter Description Practice Location Reason(s) For Visit Diagnoses Date Provider Providers Copied on Encounter [facility], [address] [place] [address] [address], [place], [place], [id number], [place] tel:[phone] SEC [place] Professional evaluation (chief complaint) High risk medication use 0 Azucena OD Andres. [address] [facility], 6th [address], [place], [address], [place]. tel:[phone] Referring Provider: Vickie Macias MD, [address] [facility] [address], [place], [address] . tel:[phone] Family History Family Member Type Diagnosis Age At Onset No Information Payers Payer name Insurance type Covered constitution party ID Authoriza tion(s) Cigna CI [id number] Social History Type Description Quantity Date Captured Comments Alcohol Use Details No Caffeine Use Details Tobacco Use Status Current non-smoker 20 Smoking Status Never smoker Non-Smoking Tobacco Use Details : No Details Available : No Details Available Sex Female Chief Complaint And Reason For Visit From encounter dated '11/05/2019 09:15'. evaluation (chief complaint). Description: The 39 year old female presents for an evaluation for starting Hydroxychlorquine for Lupus. Patient has hx of refractive sx ou. Patient has been on this medication for a couple of weeks. Patient has no VA complaints. Reason For Referral Reason For Referral No Information History Of Present Illness Encounter Date Complaint History Of Prese nt Illness evaluation The 39 year old female presents for an evaluation for starting Hydroxychlorquine for Lupus. Patient has hx of refractive sx ou. Patient has been on this medication for a couple of weeks. Patient has no VA complaints. Functional Status Date Functional Assessmen t No Information Instructions Date Instruction Additional Infor alfredoion Impression/Plan Assessments Type Assessment Date assessment High risk medication use 2019 Patient Care Teams Name Effective Dates (start - stop) Status Members No Information
--- OUTSIDE RECORDS SUMMARY | 2024-10-09 17:46 | XMS_ITS | Continuity of Care Document ---
Author Organization [facility] Address [address] [place] [address] Phone Care Team Providers Care Last Trimmer Name Role Phone Azucena BRIGGS, Andres Unavailable [...] Diagnoses Date Provider Providers Copied on Encounter [facility], [address] [place] [address] [address], [place], [place], [id number], [place] tel:[phone] SEC [place] Professional evaluation (chief complaint) High risk medication use 0 Azucena OD Andres. [address] [facility], 6th [address], [place], [address], [place]. tel:[phone] Referring Provider: Vickie Macias MD, [address] [facility] [address], [place], [address] . tel:[phone] Family History Family Member Type Diagnosis Age At Onset No Information Payers Payer name Insurance type Covered constitution party ID Authoriza tion(s) Cigna CI [id number] Social History Type Description Quantity Date Captured [...]
--- OUTSIDE RECORDS SUMMARY | 2024-10-09 17:46 | XMS_ITS | Clinical Summary ---
Author Organization [facility] Address [address] [place] [address] Phone Care Team Providers Care Game Room Attendant Name Role Phone Tan Valdivia MD Primary Care Provider [phone] Allergies Active Allergy Reactions Criticality Noted Date Comments Morphine Nausea and Vomiting Low 09/03/2015 Medications hydrOXYchloroQUI NE (PLAQUENIL) 200 mg tablet TAKE 1 TABLET BY MOUTH TWICE DAILY 02/18/2020 Active zolpidem (AMBIEN) 10 mg tablet TK 1 T PO QD HS PRN 12/19/2019 Active aspirin (ECOTRIN EC) 81 mg Tablet, Delayed Release (E.C.) Take 81 mg by mouth daily. Active acetaminophen (TYLENOL) 500 mg tablet Take 1,000 mg by mouth every 6 hours as needed. Active butalbital-aceta minophen-caffein e (FIORICET) 50-325-40 mg tabletIndication s:Nonintractable headache, unspecified chronicity pattern, unspecified headache type Take 1 Tablet by mouth every 4 hours as needed for Migraine. 30 Tablet 5 03/10/2020 Active rizatriptan (Maxalt-CLEANER GREASER) 5 mg Tablet, Rapid Dissolve Place 1 Tablet (5 mg) inside cheek every 2 hours as needed for Migraine. may repeat in 2 hours; max dose 30mg in 24 hours 9 Tablet 04/23/2020 Active propranoloL (INDERAL) 40 mg tablet Take 1 Tablet (40 mg) by mouth 2 times daily. 60 Tablet 5 04/23/2020 Active Active Problems Problem Noted Date Diagnosed Date Gastroesophageal reflux disease without esophagi tis 09/10/2015 Obstructive sleep apnea 09/10/2015 General medical exam 09/10/2015 Immunizations Immunization Administration Dates Next Due Influenza Seasonal Unspecified Formulation IM Family History Medical History Relation Name Comments Hypertension Father Hypertension Mother Relation Name Status Comments Father Alive Mother Alive Social History Tobacco Use Types Packs/Day Years Used Date Smoking Tobacco: Never Alcohol Use Standard Drinks/Week Comments No 0 (1 standard drink = 0.6 oz pur e alcohol) Comments No Sex and Gender Information Value Date Recorded Sex Assigned at Not on file Legal Sex Female 2:46 PM CDT Gender Identity Not on file Sexual Orientation Not on file Last Filed Vital Signs Vital Sign Reading Time Taken Comments Blood Pressure 120/70 03/10/2020 9:41 AM ELECTRICAL ASSEMBLER Pulse 77 03/10/2020 9:41 AM ELECTRICAL ASSEMBLER Temperature 36.3 C (97.4 F) 03/10/2020 9:41 AM ELECTRICAL ASSEMBLER Respiratory Rate 16 09/11/2015 12:0 0 PM CDT Oxygen Saturation 98% 03/10/2020 9:41 AM ELECTRICAL ASSEMBLER Inhaled Oxygen Concentration - - Weight 111.4 kg (245 lb 9.6 oz) 09/11/2015 7:00 AM CDT Height 167.6 cm (5' 6) 03/10/2020 9:41 AM ELECTRICAL ASSEMBLER Body Mass Index 39.64 09/10/2015 7:50 AM CDT Plan of Treatment Health Maintenance Due Date Last Done Comments DTAP/TDAP/TD VACCINES (1 - Tdap) 07/04/1999 HEPATITIS B VACCINES (1 of 3 - 19+ 3-dose series) 07/04/1999 HPV/Cotest (21-29) 2001 CERVICAL CANCER SCREENING 2010 HPV/Cotest (30-65) 2010 PAP SMEAR 2010 BREAST CANCER SCREENING 2020 INFLUENZA VACCINE (#1) 2023 03/05/2015 HPV VACCINES Aged Out No longer eligi ble based on patient's age to complete this topic Medical Devices Implanted Type Area Promotion Producer Device Identifier Shelf Expiration Date Model / Serial / Lot [employer] Develop[employer] Bio 60 [id number] - [id number] Implanted:Qty: 5 on 09/10/2015 by Dale Xie MD at [facility] N/A: Stomach [employer] 06/01/2018 [id number] / / [id number] Description:IMPLANT #1 - #4 PER ABOVE IMPLANT #5 LOT# [id number] EXP. 06/01/18 Insurance [facility] OPEN ACCESS O [facility] OPEN ACCESS O Advance Directives For more information, please contact: [phone] * Full Code (Latest Code Status on File) Date Activated Date Inactivated Comments 09/10/2015 8:20 AM 09/11/2015 3:24 PM Care Teams Game Room Attendant Relationship Specialty Start Date End Date Tan Valdivia MD PCP - General Family Practice 09/02/15
--- OUTSIDE RECORDS SUMMARY | 2024-10-09 17:46 | XMS_ITS | Clinical Summary ---
Author Organization [facility] Address [address], [facility] [address] [place] [address] Phone Care Team Providers Care Park Services Specialist Name Role Phone Tan Valdivia Primary Care Provider [phone] Allergies Active Allergy Reactions Criticality Noted Date Comments Morphine Vomiting 09/05/2015 Medications No known medications Active Problems Patient Care Coordination No te Formatting of this note migh t be different from the original. [facility]ARVE[facility]ILLER AT [facility] P: [phone] Problem Noted Date Diagnosed Date Thrombocytopenia 09/05/2015 Family History Medical History Relation Name Comments Hypertension Brother 1 Hypertension Brother 2 Hypertension Brother 3 Hypertension Father Hypertension Mother Relation Name Status Comments Brother 1 Brother 2 Brother 3 Father Mother Social History Tobacco Use Types Packs/Day Years Used Date Smoking Tobacco: Never Smokeless Tobacco: Never Alcohol Use Standard Drinks/Week Comments No 0 (1 standard drink = 0.6 oz pur e alcohol) Comments Unknown Sex and Gender Information Value Date Recorded Sex Assigned at Not on file Legal Sex Female 9:25 PM CDT Gender Identity Not on file Sexual Orientation Not on file Last Filed Vital Signs Vital Sign Reading Time Taken Comments Blood Pressure 138/74 01/28/2016 10:[address] anding Pulse 71 01/28/2016 9:23 AM CDT Temperature 36.3 C (97.3 F) 01/28/2016 9:23 AM CDT Respiratory Rate 20 01/28/2016 9:23 AM CDT Oxygen Saturation 95% 01/28/2016 9:23 AM CDT Inhaled Oxygen Concentration - - Weight 86.7 kg (191 lb 3.2 oz) 01/28/2016 9:23 A M CDT Height 167.6 cm (5' 6) 01/28/2016 9:23 AM CDT Body Mass Index 30.86 01/28/2016 9:23 AM CDT Plan of Treatment Health Maintenance Due Date Last Done Comments Hepatitis C Virus (HCV) Screening 1980 TdaP Immunization 1980 Human Papillomavirus (HPV) Immunization (1 - 3-dose series) 07/04/1995 Hepatitis B Immunization (1 of 3 - 19+ 3-dose series) 07/04/1999 SARS-COV-2 Immunization (1 - 2023- season) 2024 Influenza Immunization (Seas on Ended) 2024 Respiratory Syncytial Virus (RSV) Immunization (Adult) (1 - 1-dose 75+ series) 07/04/2055 Meningococcal Immunization (ACWY) Aged Out No longer eligible based on patient's age to complete this topic Pneumococcal Immunization Combined Aged Out No longer eligible based on patient's age to complete this topic Rotavirus Immunization Aged Out No lo nger eligible based on patient's age to complete this topic Insurance [facility] Care Teams Park Services Specialist Relationship Specialty Start Date End Date Tan Valdivia [address] [place] [address] PCP - General Family Medicine 09/05/15
--- OUTSIDE RECORDS SUMMARY | 2024-10-09 17:46 | XMS_ITS ---
Author Organization [facility], Address [address] [place] [address] Care Team Providers Care Manager Internet Name Role Phone Tan Valdivia Primary Care Provider Jesús Bowles Unavailable [phone] REASON FOR VISIT Myleogram Encounters Encounter Location Date Provider Diagnosis [facility], [address] [place] [address] 08/20/2024 Jesús Barksdale PLAN OF TREATMENT No Information
[2024-10-09 17:47] VITALS: BP 130/75; PULSE 89; RESP 16; TEMP 36.9; O2SAT 100
--- NOTE | 2024-10-09 18:07 | ED_ITS ---
HPI - Female Genitourinary General Chief complaint: Urogenital-Female Stated complaint: UTI Time Seen by Provider: 10/09/24 18:07 Source: patient and RN notes reviewed Mode of arrival: ambulatory Limitations: no limitations History of Present Illness HPI Narrative: 44-year-old female presented for complaint of burning urination, frequency and urgency. Onset yesterday. Endorses bladder spasms and suprapubic cramping. Denies hematuria, nausea, vomiting, abdominal pain, flank pain, constipation, diarrhea, fevers or chills. Related Data Home Medications ?Medication ?Instructions ?Recorded ?Confirmed ?Last Taken ?Type zolpidem 10 mg tablet 10 mg PO HS PRN sleeplessness 08/02/21 06/23/23 12/22/21 History cyclobenzaprine 10 mg tablet mg 10/09/24 Unknown History pregabalin 75 mg capsule mg 10/09/24 Unknown History Allergies Allergy/AdvReac Type Severity Reaction Status Date / Time latex Allergy Severe Rash Verified 10/09/24 17:52 morphine Allergy Severe Hives Verified 10/09/24 17:52 cortisone Allergy Unknown Anaphylactic Verified 10/09/24 17:52 Shock hydromorphone (From Dilaudid) Allergy Unknown Unknown Verified 10/09/24 17:52 STEROIDS Allergy Unknown Uncoded 10/09/24 17:52 Review of Systems Review of Systems: CONSTITUTIONAL: Denies body aches, fever, chills, or sweats. CARDIOVASCULAR: Denies chest pain, palpitations, or edema. RESPIRATORY: Denies cough or dyspnea. GASTROINTESTINAL: Denies abdominal pain, nausea, vomiting, or diarrhea. GENITOURINARY: Reports dysuria, frequency, urgency, denies hematuria, flank pain, discharge SKIN: Denies rash, itching, or wounds. MUSCULOSKELETAL: Denies back pain or myalgia. [facility] Past Medical History Medical History History of reproductive disorder uterine ablation Lupus (systemic lupus erythematosus) Shingles TIA (transient ischemic attack) Surgical History Surgical History H/O tubal ligation History of orthopedic surgery rt shoulder Hx of section Hx of gastric bypass sleeve Hx of tonsillectomy Family History Family History Father Hypertension Mother Hypertension Other Family history of arthritis Social History Social History (Updated 06/23/23 @ 09:45 by Amparo Hollis [facility]) Smoking status: Never smoker Second hand tobacco smoke exposure: Yes (PARENTS SMOKED) Alcohol intake: never Substance use: never Substance use type: does not use Do You Feel Safe in your Home?: Yes Lack of Transportation: No Lack of Food: Never True Current Housing: I Have Housing Concerned About Future Housing: No Difficulty Paying Gas/Electric Bills: No Difficulty Paying for Meds: No Currently Unemployed: No Education: Associate Degree Difficulty w/ Childcare or Family Care: No Living arrangements: with family Spiritual care concerns: No Comments At time of signature, I have reviewed and agree with nursing past medical, surgical, social and family history unless otherwise noted. Please see nursing chart for further information. There is no relevant family history pertinent to the presenting complaint Exam Narrative: GENERAL: Well-appearing and in no acute distress. ENT: Mucous membranes pink and moist. NECK: Normal AROM. Supple. CHEST: No respiratory distress. Clear to auscultation. HEART: Regular rate and rhythm. ABDOMEN: Soft, Suprapubic tenderness. nondistended, normal active bowel sounds. No CVA tenderness SKIN: Warm, dry, no rash. NEURO: No focal deficits. Alert and oriented x3. Gait steady. PSYCH: Normal affect. Course Course Emergency Course: Patient is aware of diagnosis, understands and agrees to treatment plan. Anticipatory guidance given. Patient agrees to follow-up as directed and is aware of reasons to seek care at the emergency department. Portions of this record may have been created with voice recognition software Level of Care: Express Care Visit Vital Signs Vital signs: Vital Signs Temperature 98.5 F 10/09/24 17:47 Pulse Rate 89 10/09/24 17:47 Respiratory Rate 16 10/09/24 17:47 Blood Pressure 130/75 10/09/24 17:47 Pulse Oximetry 100 10/09/24 17:47 Oxygen Delivery Room Air 10/09/24 17:47 Temperature 98.5 F 10/09/24 17:47 Pulse Rate 89 10/09/24 17:47 Respiratory Rate 16 10/09/24 17:47 Blood Pressure 130/75 10/09/24 17:47 Pulse Oximetry 100 10/09/24 17:47 Oxygen Delivery Room Air 10/09/24 17:47 Reviewed MDM - Female Genitourinary MDM Narrative Medical decision making narrative: Discussed physical exam findings and urine result. Advised supportive measures and signs/symptoms to go to the ER. Pt is appropriate for outpt treatment and f/u. Differential Diagnosis Differential diagnosis: Likely urinary tract infection, bacterial vaginosis, vaginitis and cystitis Discharge Plan Discharge Clinical Impression: Urinary tract infection Patient Disposition: Home Condition: Stable Instructions: Antibiotic Form, Urinary Tract Infection in Women (ED) Additional Instructions: Take the antibiotic as prescribed The urine will be sent of for a culture to identify what type of bacteria is causing your infection. If the culture shows that the antibiotic will not get rid of your infection, you will be notified and a new antibiotic will be called in for you. Increase water intake you will need to follow up with your PCP, call to schedule an appointment. Go to the ER for any worsening symptoms or concerns Patient Language: Citizen Of [place] Prescriptions: New nitrofurantoin monohyd/m-cryst [Macrobid] 100 mg capsule 100 mg PO Q12H 5 Days Qty: 10 0RF Rx Instructions: must administer with a meal/food fluconazole 150 mg tablet 150 mg PO DAILY Qty: 2 0RF phenazopyridine [Pyridium] 200 mg tablet 200 mg PO TID 2 Days Qty: 6 0RF No Action zolpidem 10 mg tablet 10 mg PO HS PRN (Reason: sleeplessness) cyclobenzaprine 10 mg tablet pregabalin 75 mg capsule Follow-up/Referrals: Tan Valdviia MD [Primary Care Provider] - Time of Disposition: 18:12
[2024-10-09 18:09] LABS: EDUAAPPEAR Cloudy; EDUABILI 1+ (Negative); EDUABLOOD 2+ (Negative); EDUACOLOR1 Amber; EDUAGLUCOSE Negative (Negative); EDUAKETONE Negative (Negative); EDUALEUKO 1+ (Negative); EDUANITRATE Negative (Negative); EDUAPROTEIN 1+ (Negative); EDUAUROBILI 0.2
== END 2024-10-09 18:14 | disposition home or self-care (01) ==
PROVIDERS: Emergency Provider Nurse Practitioner Family; PCP Emergency Medicine
DX: N39.0 Urinary tract infection, site not specified (principal); M32.9 Systemic lupus erythematosus, unspecified; Z86.73 Personal history of transient ischemic attack (TIA), and cerebral infarction without residual deficits
CPT/HCPCS: 81003; 87086; 87186; 99213; G0463

== ENCOUNTER 2025-04-28 13:22 | Emergency (ER) | payer OTHER, SELFPAY ==
[2025-04-28] VITALS (10 sets, daily range): BP systolic 116–155; BP diastolic 72–92; PULSE 60–95; RESP 17–26; TEMP 36.2; O2SAT 95–100
--- NOTE | ~2025-04-28 | XR_ITS ---
EXAMINATION: XR chest 2V DATE: 04/28/2025 16:36 INDICATION: Syncope. TECHNIQUE: Frontal and lateral views of the chest were obtained. COMPARISON: Chest x-ray dated 06/16/2023. FINDINGS: Heart size is normal. No focal pulmonary infiltrates. No effusion. IMPRESSION: 1. No acute pulmonary findings. Reviewed, dictated and finalized at location T. ARCH BIOSTATISTICIAN
--- NOTE | ~2025-04-28 | XR_ITS ---
EXAMINATION: XR hip RT 2V w AP pelvis, XR lumbar spine 2-3V DATE: 04/28/2025 16:36 INDICATION: Trauma due to fall. TECHNIQUE: Pelvis AP and 2 views of the right hip were obtained. 3 views of lumbosacral spine were obtained. COMPARISON: None. FINDINGS: No acute bony lesions at the right hip. Mild arthritis of SI joint. 5 lumbar segments are seen. No acute fracture of lumbar vertebrae. Facet arthropathy with first-degree anterolisthesis of L4 on L5. Facet arthropathy at L5-S1 level. IMPRESSION: 1. No acute bony lesions of pelvis and right hip. 2. No acute abnormalities of lumbar vertebrae. Facet arthropathy at L4-5 and L5- S1 levels as mentioned above. Reviewed, dictated and finalized at location T. NG ASSOCIATE IMPRESSION: 1. No acute bony lesions of pelvis and right hip. 2. No acute abnormalities of lumbar vertebrae. Facet arthropathy at L4-5 and L5 -S1 levels as mentioned above.
--- OUTSIDE RECORDS SUMMARY | 2025-04-28 13:24 | XMS_ITS | Patient Health Record ---
Author Organization [facility] Address [address] [place], [place] [address] Phone [phone] Care Team Providers Care Transport Aircrewman Name Role Phone TARA EASTMAN MD Primary Care Provider Ora Cotton, Akgun Unavailable Allergies Allergen (clinical drug ingredient) Drug/Non Drug Allergy documented on EMR Reaction Allergy Type Onset Date Status morphine morphine Itching Drug Allergy Active Reason For Referral No Information Medications Medication SIG (Take, Route, Frequency, Duration) Notes Start Date End Date Diagnosis (ICD Code) Status Ambien 10 mg tablet 1 tab(s) orally once a day (at bedtime) Active phentermine 37.5 mg capsule 1 cap(s) orally once a day Active Hydroxychloroquine Sulfate 200 mg tablet 1 tab(s) orally bid; Duration: 30 Active butalbital/acetaminophen /caffeine 50-325-40mg as needed Active Social History Tobacco Use: Social History Observation Description Date Details (start date - stop date) Never Smoker NA - NA Sex Observation Social History Observation Description Sex Observation Female Social History Social History Social Info Question Answer Notes Tobacco Use: Smoking Status nonsmoker Additional Details Category Social Info Options Details Social History 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 spouse an d 4 children Marital Status How many times have you been ? 2 Living accomodations: house Problems Problem Type SNOMED Code ICD Code Dates Problem Status W/U Status Risk Notes Problem Long-term current use of drug therapy (437900339) Other continuous churn buttermaker (current) drug therapy (Z79.899) Added On:11/01 Active confirmed Problem Polyarthralgia (04544744) Polyarthralgia (M25.50) Added On:08/31 Active confirmed Problem Skin sensation disturbance (78124710) Numbness and tingling (R20.2) Added On:08/31 Active confirmed Problem Difficulty sleeping (853630853) Sleeping difficulty (G47.9) Added On:08/31 Active confirmed Problem Positive double stranded DNA antibody test (R76.8) Added On:07/2019 Active confirmed Problem Miscarriage (85470707) Miscarriage (O03.9) Added On:08/31 Active confirmed Problem Neuralgia (82976278) Neuralgia (M79.2) Added On:08/31 Active confirmed Problem Myalgia (04991606) Myalgia (M79.10) Added On:08/31 Active confirmed Problem Antiphospholipid syndrome (55079617) Anticardiolipin antibody syndrome (D68.61) Added On:07/2019 Active confirmed Plan Of Treatment Pending Test Test Name Order Date X ray : Hand left- outside order 020 X ray : Hand right- outside order 2019 X ray : SI joints- outside order 020 P-ANCA, C-ANCA 09/20/2019 Eye exam - Plaquenil 10/03/2019 X ray : Foot Left- outside order 020 X ray : Foot Right- outside order 2019 Insurance Providers Payer Name Payer Address Payer Phone Subscriber Number Group Number Insured Name Patient Relationship to Insured Coverage Start Date Coverage End Date Cigna Open Access Plus [address] [place] [phone] [id number] NANCY PURVIS Spouse - patient is the spouse of the insured 7 Medical (General) History Medical History History ICD Code bruises easily [...] A 1985 C section 2005 tubal ligation 2006 uterine ablation 2017 Lasik 2018 VS 2016
--- OUTSIDE RECORDS SUMMARY | 2025-04-28 13:24 | XMS_ITS | Clinical Summary ---
Author Organization [facility] Address [address] [place] [address] Phone Care Team Providers Care Sleeve Wheel Maker Name Role Phone Tan Valdivia MD Primary Care Provider [phone] Allergies Active Allergy Reactions Criticality Noted Date [...] Migraine. 30 Tablet 5 03/10/2020 Active rizatriptan (Maxalt-DIE DESIGNER) 5 mg Tablet, Rapid Dissolve Place 1 [...] Comments Blood Pressure 120/70 03/10/2020 9:41 AM SENIOR PRODUCT ANALYST Pulse 77 03/10/2020 9:41 AM SENIOR PRODUCT ANALYST Temperature 36.3 C (97.4 F) 03/10/2020 9:41 AM SENIOR PRODUCT ANALYST Respiratory Rate 16 09/11/2015 12:0 0 PM CDT Oxygen Saturation 98% 03/10/2020 9:41 AM SENIOR PRODUCT ANALYST Inhaled Oxygen Concentration - - Weight 111.4 kg (245 lb 9.6 oz) 09/11/2015 7:00 AM CDT Height 167.6 cm (5' 6) 03/10/2020 9:41 AM SENIOR PRODUCT ANALYST Body Mass Index 39.64 09/10/2015 7:50 AM CDT Plan of Treatment Health Maintenance Due Date Last Done Comments DTAP/TDAP/TD VACCINES (1 - Tdap) 07/04/1999 HEPATITIS B VACCINES (1 of 3 - 19+ 3-dose series) 08/1999 HPV/Cotest (21-29) 2001 CERVICAL CANCER SCREENING 2010 HPV/Cotest (30-65) 2010 PAP SMEAR 2010 BREAST CANCER SCREENING 2020 INFLUENZA VACCINE (#1) 2024 03/05/2015 HPV VACCINES (No Doses Required) Completed Medical Devices Implanted Type Area Glass Cut Off Supervisor Device Identifier Shelf Expiration Date Model / Serial / Lot Seamguard Bio 60 [id number] - [id number] Implanted:Qty: 5 on 09/10/2015 by Dale Xie MD at [facility] N/A: Stomach [employer] 06/01/2018 [id number] / / [id number] Description:IMPLANT #1 - #4 PER ABOVE IMPLANT #5 LOT# [id number] EXP. 06/01/18 Insurance COUNTS INCLUDE 234 BEDS AT [facility] OPEN ACCESS O [employer] OPEN ACCESS O Advance Directives For more information, please contact: [phone] * Full Code (Latest Code Status on File) Date Activated Date Inactivated Comments 09/10/2015 8:20 AM 09/11/2015 3:24 PM Care Teams Sleeve Wheel Maker Relationship Specialty Start Date End Date Tan Valdivia MD PCP - General Family Practice 09/02/15
--- OUTSIDE RECORDS SUMMARY | 2025-04-28 13:24 | XMS_ITS | Patient Health Record ---
Author Organization [facility] Address [address] [place] [address] Care Team Providers Care Electrical Power Station Technician Name Role Phone Skip Tan Primary Care Provider Jesús Bowles [phone] Allergies Allergen (clinical drug ingredient) Drug/Non Drug Allergy documented on EMR Reaction Allergy Type Onset Date Status morphine Morphine rash/hives Drug Allergy Active Latex Latex Unknown Allergy Active cortisone Cortisone steroids/rash /hives Drug Allergy Active hydromorphone Dilaudid rash/hives Drug Allergy Ac tive Results Component Value Reference Range Notes X ray : Lumbar spine 5 views , AP, Lateral, Spot, Flexion and Extension Reviewed date:07/05/2024 12:20:47 PM Interpretation:1020 Performing Lab: Notes/Report: 1020 Reason For Referral No Information Medications Medication SIG (Take, Route, Fr equency, Duration) Notes Start Date End Date Status Meloxicam Not-Taking Gabapentin Not-Takin g Tylenol Active ibuprofen Active Lyrica Active Aspirin 81 Active Diclofenac Active Ambien Not-Taking Phentermine HCl Not- Taking Flexeril Not-Taking Social History Section Notes: She is a non-smoker. She does not drink alcohol. She denies h/o drug/chemical abuse. She is , lives at home with a healthy . She has achieved an Associate's degree. 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 Her normal work duties may require lifting up to 80 pounds. General state of health is good. She is a non-smoker. She does not drink alcohol. She denies h/o drug/chemical abuse. She uses a cane at times to ambulate. She is , lives at home with a healthy . She has achieved an associate's degree. 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 She is performing regular work duties. General state of health is good. Vital Signs Height 66 in 07/05/2024 Weight 160 lbs 07/05/2024 BMI 25.82 kg/m2 07/05/2024 Encounters Encounter Location Date Provider Diagnosis [facility] [address] [facility] [address] [place] [address] 07/05/2024 Jesús Barksdale Herniation of lumbar intervertebral disc with radiculopathy M51.16 ; Disc Degeneration, Lumbar Region with Leg Pain M51.361 and Back strain S39.012A [facility] [address] [facility] [address] [place] [address] 08/20/2024 Jesús Barksdale [facility] [address] [facility] [address] [place] [address] 08/30/2024 Jesús Barksdale Assessments Encounter Date Diagnosis (ICD Code) Assessment Notes Treatment Notes Treatment Clinical Notes [...] to a reasonable degree of medical certainty. [facility]m 07/05/2024 Disc Degeneration, Lumbar Region with Leg [...] to a reasonable degree of medical certainty. [facility]/clm 07/05/2024 Back strain (ICD-10 - S39.012A) <b>IMPRESSION:</b> [...] to a reasonable degree of medical certainty. [facility]/clm Plan Of Treatment No Information Insurance Providers Payer Name Payer Address Payer Phone Subscriber Number Group Number Insured Name Patient Relationship to Insured Coverage Start Date Coverage End Date [facility] [address] [place] [address] [phone] [id number] Catherine Purvis Self - patient is the insured 2 Medical (General) History Medical History History ICD Code HBP TIA/stroke Lupus Bleeding problems Psoriatic arthritis Back pain/injury 04/06/2022 Herniated disc associated with injury Numbness in R. foot at times Depression Denies being hospitalized for psychiatri c condition Denies h/o drug/chemical dependency Surgical History Surgery Date(Month/Year) Right shoulder 2001 2006 VSG 2015 LASIK 2017 Hysterectomy 11/2021 LDL and discectomy 07/2023
--- OUTSIDE RECORDS SUMMARY | 2025-04-28 13:24 | XMS_ITS | Clinical Summary ---
Author Organization [facility] Address [address] [place] [address] Care Team Providers Care Train Starter Name Role Phone No, Pcp WILDLAND FIRE FIGHTER SPECIALIST Primary Care Provider Unavailabl e Medications No known medications Social History Tobacco Use Types Packs/Day Years Used Date Smoking Tobacco: Never Assessed Comments Unknown Sex and Gender Information Value Date Recorded Sex Assigned at Not on file Legal Sex Female 3:22 PM EDT Gender Identity Not on file Sexual Orientation Not on file Plan of Treatment Not on file Medical Devices Not on file Care Teams Train Starter Relationship Specialty Start Date End Date No, Pcp, WILDLAND FIRE FIGHTER SPECIALIST N/A Do not use PCP - General Family Medicine 01/19/20
--- OUTSIDE RECORDS SUMMARY | 2025-04-28 13:25 | XMS_ITS | Clinical Summary ---
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 0 Polyarthralgia 02/05/2020 [...] on file Legal Sex Female 10:18 AM ROUSTABOUT CREW LEADER Gender Identity Female 05/06/2022 7:59 AM ROUSTABOUT CREW LEADER Sexual Orientation Not on file Last Filed Vital Signs Vital Sign Reading Time Taken Comments Blood Pressure 99/77 07/01/2016 6:47 PM ROUSTABOUT CREW LEADER Pulse 98 07/01/2016 6:47 PM ROUSTABOUT CREW LEADER Temperature 36.8 C (98.3 F) 07/01/2016 6:47 PM ROUSTABOUT CREW LEADER Respiratory Rate - - Oxygen Saturation 100% 07/01/2016 6:47 PM ROUSTABOUT CREW LEADER Inhaled Oxygen Concentration - - Weight 83.9 kg (185 lb) 07/01/2016 6:47 PM ROUSTABOUT CREW LEADER Height 167.6 cm (5' 6) 07/01/2016 6:47 PM ROUSTABOUT CREW LEADER Body Mass Index 29.86 07/01/2016 6:47 PM ROUSTABOUT CREW LEADER Plan of Treatment Health Maintenance Due Date Last Done Comments Cervical Cancer Screening 1980 Depression Screening 1980 Hepatitis C Screening 1980 Varicella Vaccines (1 of 2 - 13+ 2-dose series) 1993 Regular Well Visit/Exam 18-64 1998 Pneumococcal vaccine <65 (1 of 2 - PCV) 07/04/1999 Zoster Vaccine (1 of 2) 07/04/1999 HPV Vaccines (1 - 3-dose SCD M series) 07/04/2007 Breast Cancer Screening-Mammogram 05/10/2023 023 Influenza Vaccine (#1) 2024 9, 03/05/2018, 05/02/2016, Additional history exists DTaP/Tdap/Td Vaccine (2 - Td or Tdap) 11/06/2026 11/06/2016 Hepatitis B Screening Completed 05/02/2017 Procedures Procedure Name Priority Date/Time Associated Diagnosis Comments SCREENING MAMMOGRAM BILATERAL W CELSO Schedule Routine, Read Routine (OP Routine) 05/10/2022 11:14 AM ROUSTABOUT CREW LEADER Screening mammogram, encounter for from Last 3 Months or Most Recently Relevant to Health Maintenance Results * Screening Mammogram Bilateral W Celso (05/10/2022 11:14 AM ROUSTABOUT CREW LEADER) Anatomical Region Laterality Modality Breast Bilateral Mammography Narrative 05/11/2022 2:53 PM ROUSTABOUT CREW LEADER Mammogram Technique: Bilateral Digital Breast Tomosynthesis, Bilateral [...] Most Recently Relevant to Health Maintenance Insurance [facility] Care Teams Cannery Worker Relationship Specialty Start Date End Date Tan Valdivia MD [address] [place] [address] PCP - General Family Medicine 02/05/20
--- NOTE | 2025-04-28 13:32 | ECG_ITS ---
Test Date: 2025-04-28 13:36:15 Measurements Intervals [place] Rate: 82 P: 72 MS: 150 QRS: 43 QRSD: 88 T: 57 QT: 356 QTc: 418 Interpretive Statements SINUS RHYTHM INCOMPLETE RIGHT BUNDLE BRANCH BLOCK BASELINE ARTIFACT- I, II, III, AVR, AVL, AVF BORDERLINE ECG No previous ECG available for comparison Electronically Signed On 04-28-2025 20:19:40 CLINIC DIRECTOR by Severo Kelly D.O.
--- NOTE | 2025-04-28 15:47 | PC.NURSE ---
Patient came up the desk asking when she will be seen. Patient removed her C-collar.
[2025-04-28 16:05] LABS: Hematocrit 40.6 % (37.0-47.0); Hemoglobin 13.5 g/dL (12.0-15.0); Immature Granulocyte Percent A 0.3 % (0-0.5); Immature Platelet Fraction Pct 2.4 % (0.9-11.2); Lymphocytes Absolute Auto 2.25 K/mm3 (0.9-3.2); Mean Corpuscular HGB Conc 33.3 g/dl (32-36); Mean Corpuscular Hemoglobin 28.5 pg (26-34); Mean Corpuscular Volume 85.7 fl (80-100); Nucleated Red Blood Cells Absolute Auto 0.000 K/mm3 (0.0-0.012); Nucleated Red Blood Cells Perc 0.0 % (0.0-0.2); Platelet Count Result 164 k/mm3 (150-375); Red Blood Count 4.74 M/mm3 (4.2-5.4); White Blood Count 6.3 K/mm3 (4.5-10.0)
[2025-04-28] MEDS: KETOROLAC 30 MG/ML VIAL (*BKC) IV PUSH (17:00)
[2025-04-28] MEDS: SODIUM CHLORIDE 0.9% IV 1,000 ML 999 ML IV CONT (17:00)
[2025-04-28 17:14] LABS: Alanine Aminotransferase 22 U/L (6-35); Albumin Level 4.2 g/dL (3.5-5.1); Alkaline Phosphatase 63 U/L (38-126); Anion Gap 5 mmol/L (4-12); Aspartate Amino Transferase 26 U/L (14-36); Bilirubin,Total 0.5 mg/dL (0.2-1.3); Blood Urea Nitrogen 19 mg/dL (7-17); Calcium 9.4 mg/dL (8.4-10.2); Carbon Dioxide 24 mmol/L (22-30); Chloride 109 mmol/L (98-107); Estimated Glomerular Filt Rate > 60; Glucose 86 mg/dL (65-110); Potassium 3.7 mmol/L (3.4-5.0); Sodium 138 mmol/L (137-145); Total Protein 6.6 g/dL (6.3-8.2)
--- NOTE | 2025-04-28 18:54 | ED_ITS ---
HPI - General Adult General Chief complaint: Syncope Stated complaint: syncopal episode Time Seen by Provider: 04/28/25 15:57 History of Present Illness HPI narrative: Patient is a 44-year-old female who presents ER after having an episode of syncope. She has been having diarrhea and vomiting for several days. She was able to be yesterday but had nothing to eat today. She got up off the couch to go get some food when she began to get lightheaded and was reaching for the door. She then lost consciousness and woke up face down with pain over her right hip. She has no lacerations. Denies any chest pain or chest pressure. No difficulty breathing. She has had no blood in her stool. Related Data Home Medications ?Medication ?Instructions ?Recorded ?Confirmed ?Last Taken ?Type zolpidem 10 mg tablet 10 mg PO HS PRN sleeplessnes s 08/02/21 06/23/23 12/22/21 History cyclobenzaprine 10 mg tablet mg 10/09/24 Unknown Hist ory pregabalin 75 mg capsule mg 10/09/24 Unknown History Allergies Allergy/AdvReac Type Severity Reaction Status Date / Time latex Allergy Severe Rash Verified 10/09/24 17:52 morphine Allergy Severe Hives Verified 10/09/24 17:52 cortisone Allergy Unknown Anaphylactic Verified 10/09/24 17:52 Shock hydromorphone (From Dilaudid) Allergy Unknown Unknown Verified 10/09/24 17:52 STEROIDS Allergy Unknown Uncoded 10/09/24 17:52 Review of Systems 2 Review of Systems: All systems reviewed & are unremarkable except as noted in HPI and below Constitutional: Constitutional: Reports no additional constitutional complaints ENT: Reports system reviewed and no additional complaints, except as documented Cardiovascular: Cardiovascular: Reports no additional cardiovascular complaints Respiratory: Respiratory: Reports no additional respiratory complaints [facility] Past Medical History Medical History History of reproductive disorder uterine ablation Lupus (systemic lupus erythematosus) Shingles TIA (transient ischemic attack) Surgical History Surgical History H/O tubal ligation History of orthopedic surgery rt shoulder Hx of section Hx of gastric bypass sleeve Hx of tonsillectomy Family History Family History Father Hypertension Mother Hypertension Other Family history of arthritis Social History Social History (Updated 06/23/23 @ 09:45 by Amparo Hollis [facility]) Smoking status: Never smoker Second hand tobacco smoke exposure: Yes (PARENTS SMOKED) Alcohol intake: never Substance use: never Substance use type: does not use Lack of Transportation: No Lack of Food: Never True Current Housing: I Have Housing Concerned About Future Housing: No Difficulty Paying Gas/Electric Bills: No Difficulty Paying for Meds: No Currently Unemployed: No Education: Associate Degree Difficulty w/ Childcare or Family Care: No Living arrangements: with family Spiritual care concerns: No Exam 2 Narrative: GENERAL: Well-appearing, well-nourished, and in no acute distress. HEAD: Normocephalic, atraumatic. ENT: Mucous membranes moist. CHEST: Clear to auscultation. No respiratory distress. HEART: Regular rate and rhythm. Normal peripheral pulses. ABDOMEN: Soft, nontender, nondistended. EXTREMITIES: Normal range of motion. No edema. SKIN: Warm, dry, no rash. NEURO: Alert and oriented x3. PSYCH: Normal mood and affect. Course Course Emergency Course: Patient resting comfortably. Hydrated. CMP and CBC normal. EKG without arrhythmia. X-rays negative. Appropriate for discharge home. Vital Signs Vital signs: Vital Signs Temperature 97.1 F L 04/28/25 13:27 Pulse Rate 95 04/28/25 13:27 Respiratory Rate 20 04/28/25 13:27 Blood Pressure 128/72 04/28/25 13:27 Pulse Oximetry 95 04/28/25 13:27 Temperature 97.1 F L 04/28/25 13:27 Pulse Rate 68 04/28/25 18:16 Respiratory Rate 19 04/28/25 18:16 Blood Pressure 130/90 04/28/25 18:16 Pulse Oximetry 100 04/28/25 18:16 MDM Differential Diagnosis Differential Diagnosis: Vasovagal syncope, cardiac syncope, KELSI, sepsis, GI bleed, anemia Lab Data [facility] Lab Attestation statement: I personally reviewed the patient's lab results. 04/28/25 15:58 04/28/25 16:59 Labs: Lab Results 04/28/25 04/28/25 Range/Units 15:58 16:59 WBC 6.3 (4.5-10.0) K/mm3 RBC 4.74 (4.2-5.4) M/mm3 Hgb 13.5 (12.0-15.0) g/dL Hct 40.6 (37.0-47.0) % MCV 85.7 (80-100) fl MCH 28.5 (26-34) pg MCHC 33.3 (32-36) g/dl RDW 13.2 (11.5-14.5) % Plt Count 164 (150-375) k/mm3 MPV 11.4 H (7.4-10.4) fl Immature Gran % (Auto) 0.3 (0-0.5) % Neut % (Auto) 56.6 (45.5-73.1) % Lymph % (Auto) 35.8 (18.3-44.2) % Morgan % (Auto) 4.9 (2.6-8.5) % Eos % (Auto) 2.1 (0-4.4) % Baso % (Auto) 0.3 (0.2-1.2) % Lymph # (Auto) 2.25 (0.9-3.2) K/mm3 Morgan # (Auto) 0.3 (0.1-0.6) K/mm3 Eos # (Auto) 0.1 (0-0.3) K/mm3 Baso # (Auto) 0.0 (0.0-0.1) K/mm3 Abs Immat Gran (auto) 0.02 (0.00-0.031) K/mm3 Absolute Neuts (auto) 3.6 (1.3-6.7) K/mm3 Absolute Nucleated RBC 0.000 (0.0-0.012) K/mm3 Nucleated RBC % 0.0 (0.0-0.2) % % Immature Plt Fraction 2.4 (0.9-11.2) % Sodium 138 (137-145) mmol/L Potassium 3.7 (3.4-5.0) mmol/L Chloride 109 H (98-107) mmol/L Carbon Dioxide 24 (22-30) mmol/L Anion Gap 5 (4-12) mmol/L BUN 19 H (7-17) mg/dL Creatinine 0.82 (0.7-1.0) mg/dL Estim Creat Clear Calc Not Reportable Estimated GFR > 60 (59 - ) Glucose 86 (65-110) mg/dL Calcium 9.4 (8.4-10.2) mg/dL Total Bilirubin 0.5 (0.2-1.3) mg/dL AST 26 (14-36) U/L ALT 22 (6-35) U/L Alkaline Phosphatase 63 (38-126) U/L Total Protein 6.6 (6.3-8.2) g/dL Albumin 4.2 (3.5-5.1) g/dL Imaging Data Radiologist's impression: ITS Impressions Chest X-Ray 04/28/25 16:37 IMPRESSION: 1. No acute pulmonary findings. Hip/Pelvis X-Ray 04/28/25 16:38 IMPRESSION: 1. No acute bony lesions of pelvis and right hip. 2. No acute abnormalities of lumbar vertebrae. Facet arthropathy at L4-5 and L5- S1 levels as mentioned above. Lumbar Spine X-Ray 04/28/25 16:38 IMPRESSION: 1. No acute bony lesions of pelvis and right hip. 2. No acute abnormalities of lumbar vertebrae. Facet arthropathy at L4-5 and L5- S1 levels as mentioned above. ECG Data EKG #1: ECG completion date: 04/28/25 ECG completion time: 13:36 normal rate (82), sinus rhythm, non-specific ST changes, normal QRS, normal QT and NL axis Discharge Plan Discharge Clinical Impression: Syncope, Contusion of hip Patient Disposition: Home Condition: Stable Instructions: Syncope (ED) Additional Instructions: Please return to the emergency department if you develop severe and persistent chest pain, difficulty breathing, dizziness, leg swelling or if you are coughing up blood as these can be signs of a medical emergency. Please call your doctor for a follow up appointment to determine the need for further testing. Patient Language: Welsh Prescriptions: New ondansetron 4 mg tablet,disintegrating 4 mg PO Q6H PRN (Reason: nausea and vomiting) Qty: 10 0RF No Action zolpidem 10 mg tablet 10 mg PO HS PRN (Reason: sleeplessness) cyclobenzaprine 10 mg tablet pregabalin 75 mg capsule nitrofurantoin monohyd/m-cryst [Macrobid] 100 mg capsule 100 mg PO Q12H 5 Days Qty: 10 0RF Rx Instructions: must administer with a meal/food fluconazole 150 mg tablet 150 mg PO DAILY Qty: 2 0RF phenazopyridine [Pyridium] 200 mg tablet 200 mg PO TID 2 Days Qty: 6 0RF Follow-up/Referrals: Tan Valdivia MD [Primary Care Provider, Family Practice] - 1 Week
== END 2025-04-28 19:10 | disposition home or self-care (01) ==
PROVIDERS: Emergency Provider Emergency Medicine; PCP Emergency Medicine
DX: R55 Syncope and collapse (principal); S70.01XA Contusion of right hip, initial encounter; W18.39XA Other fall on same level, initial encounter
CPT/HCPCS: 36415; 71046; 72100; 73502; 80053; 85025; 85055; 93005; 96361; 96374; 99284; J1885; J7030